=== PATIENT | female | born 1990 | race Caucasian/White ===

== ENCOUNTER 2017-08-06 08:04 | Inpatient (IN) ==
--- OUTSIDE RECORDS SUMMARY | 2017-08-13 06:44 | External Medical Summary | Summary of Care ---
:1990 Author Name Chad Her M.D. Address [address] [place], [place] [id number] Care Team Providers Name Role Phone No Assigned PCP-Pt Confirmed Primary Care Provider Unavailable Unavailable Unavailable Unavailable Functional Status Functional Status Health Issues Name Dates Details Functional status health issues are not documented Status: Cognitive Status Health Issues Name Dates Details Cognitive status health issues are not documented Status: Problems Name Dates Details Positive urine test (V72.42, Z32.01) Status: Active Otalgia (388.70, H92.09) Status: Active Face pain (784.0, R51) Status: Active TMJ (temporomandibular joint syndrome) (524.60, M26.60) Status: Active Tooth pain (525.9, K08.8) Status: Active Pain, ankle, right (719.47, M25.571) Status: Active Breast tenderness in female (611.71, N64.4) Status: Active Medications Name Dates Details No Reported Medications Refills: 0 Active Allergies and Adverse Reactions Name Dates Details Amoxicillin TABS Reaction: Hives (Severe) Status: Active Clindamycin Status: Active Penicillins Reaction: Hives (Severe) Status: Active Sulfa Drugs Status: Active Past Medical History Name Dates Details History of migraine (V12.49, Z86.69) Status: Resolved Personal history of rheumatoid arthritis (V13.4, Z87.39) Status: Resolved Procedures Procedure Dates Details History of Tonsillectomy Comprehensive Metabolic Panel 1212 Ordered:16-Jul-2015 BETA HCG 3500 Ordered:16-Jul-2015 PROLACTIN 3612 Ordered:16-Jul-2015 THYROID STIM. HORMONE 3602 Ordered:16-Jul-2015 Immunization Name Dates Details Immunizations not documented Family History Unknown Family Member Name Dates Details Family history of Ovarian cancer (183.0, C56.9) Comments: Other Status: Active Family history of alcoholism (V17.0, Z81.1) Comments: Other Status: Active Social History Name Dates Details Smoking StatusSmoker. current status unknown Vital Signs Date Test Result Details 16-Jul-2015 15:38 BP Systolic 130 mm[Hg] Status: BP Diastolic 92 mm[Hg] Status: Temperature 98.8 f Status: Heart Rate 108 /min Status: Respiration Rate 16 /min Status: O2 SAT 98 % Status: Results Date Description Value Details 16-Jul-2015 17:07 CBC w/ Auto Diff 7150 WBC 5.0 K/uL (Better) Range: 4.5-11.0 RBC 4.30 mil/uL (Better) Range: 3.60-5.00 HGB 13.7 g/dL (Better) Range: 12.0-16.0 HCT 39.6 % (Better) Range: 36.0-48.0 MCV 92.0 fL (Better) Range: 80.0-99.0 MCH 31.8 pg (Better) Range: 27.3-32.5 MCHC 34.5 % (Better) Range: 32.0-36.0 RDW 12.3 % (Better) Range: 11.6-14.8 PLATELETS 292 K/uL (Better) Range: 150-400 MPV 7.9 fL (Better) Range: 6.0-11.0 %NEUTRO 51.0 % (Better) Range: 37.0-80.0 %LYMPHS 37.8 % (Better) Range: 13.0-50.0 %MONO 6.7 % (Better) Range: 0.0-12.0 %EOS 1.5 % (Better) Range: 0.0-7.0 %BASO 0.8 % (Better) Range: 0.0-2.5 %SIENNA 2.2 % (Better) Range: 0.0-5.0 NEUTRO 2.5 K/uL (Better) Range: 2.0-6.9 LYMPHS 1.9 K/uL (Better) Range: 0.6-3.4 MONOS 0.3 K/uL (Better) Range: 0.0-0.9 EOS 0.1 K/uL (Better) Range: 0.0-0.7 BASO 0.0 K/uL (Better) Range: 0.0-0.2 Plan of Care Planned Observations Name Dates Details Planned Goals not documented Goal Instructions Instructions not documented Encounters Appointment; Martin Her On 16-Jul-2015 Encounter Diagnosis: Problem not documented 15:20 Appointment; Mo Sheehan On 03-May-2015 Encounter Diagnosis: Problem not documented 16:10 Appointment; Tr Jules On 21-Jun-2014 Encounter Diagnosis: Problem not documented 14:35 Appointment; Martin Her On 21-Sep-2013 Encounter Diagnosis: Problem not documented 15:45
--- OUTSIDE RECORDS SUMMARY | 2017-08-13 06:44 | External Medical Summary | Summary of Care ---
:1990 Author Name Chad Her M.D. Address [address] [place], [place] [id number] Care Team Providers Name Role Phone Chad Her M.D. Unavailable Unavailable No Assigned PCP-Pt Confirmed Primary Care Provider Unavailable Unavailable Unavailable Unavailable Functional Status Functional Status Health Issues Name Dates Details Functional status health issues are not documented Status: Cognitive Status Health Issues Name Dates Details Cognitive status health issues are not documented Status: Problems Name Dates Details Otalgia (388.70, H92.09) Status: Active Face pain (784.0, R51) Status: Active Tooth pain (525.9, K08.8) Status: Active Pain, ankle, right (719.47, M25.571) Status: Active TMJ (temporomandibular joint syndrome) (524.60, M26.60) Status: Active Breast tenderness in female (611.71, N64.4) Status: Active Positive urine test (V72.42, Z32.01) Status: Active Acute sinusitis (461.9, J01.90) Status: Active Medications Name Dates Details Doxycycline Hyclate 100 MG Oral Capsule TAKE 1 CAPSULE EVERY 12 HOURS DAILY. Quantity: 14 Refills: 0 Martin Her M.D. Started 08-Nov-2015 Ended 15-Nov-2015 ActivePredniSONE 10 MG Oral Tablet TAKE 4 TABLETS DAILY FOR 2 DAYS,3 TABLETS DAILY FOR 2 DAYS, 2 TABLETS DAILY FOR 2 DAYS AND 1 TABLET DAILY FOR 2 DAYS, THEN STOP. Quantity: 20 Refills: 0 Martin Her M.D. Started 08-Nov-2015 Active Allergies and Adverse Reactions Name Dates Details Amoxicillin TABS Reaction: Hives (Severe) Status: Active Clindamycin Status: Active Penicillins Reaction: Hives (Severe) Status: Active Sulfa Drugs Status: Active Past Medical History Name Dates Details TMJ (temporomandibular joint syndrome) (524.60, M26.60) Status: Active History of depression (V11.8, Z86.59) Status: Resolved History of migraine (V12.49, Z86.69) Status: Resolved Personal history of rheumatoid arthritis (V13.4, Z87.39) Status: Resolved Procedures Procedure Dates Details History of Tonsillectomy Procedures not documented Immunization Name Dates Details Immunizations not documented Family History Unknown Family Member Name Dates Details Family history of Ovarian cancer (183.0, C56.9) Comments: Other Status: Active Family history of alcoholism (V17.0, Z81.1) Comments: Other Status: Active Social History Name Dates Details Smoking StatusSmoker. current status unknown Vital Signs Date Test Result Details 08-Nov-2015 16:19 BP Systolic 121 mm[Hg] Status: BP Diastolic 82 mm[Hg] Status: Temperature 98.8 f Status: Heart Rate 97 /min Status: O2 SAT 97 % Status: Results Date Description Value Details Results not documented Plan of Care Planned Observations Name Dates Details Planned Goals not documented Goal Instructions Instructions not documented Encounters Appointment; Martin Her On 08-Nov-2015 Encounter Diagnosis: Problem not documented 16:15 Appointment; Martin Her On 16-Jul-2015 Encounter Diagnosis: Problem not documented 15:20 Appointment; Mo Sheehan On 03-May-2015 Encounter Diagnosis: Problem not documented 16:10 Appointment; Tr Jules On 21-Jun-2014 Encounter Diagnosis: Problem not documented 14:35
--- OUTSIDE RECORDS SUMMARY | 2017-08-13 06:44 | External Medical Summary | Continuity of Care Document ---
:1990 Author Organization [facility] Address [address] [place], [place] [id number] Phone Allergies, Adverse Reactions, Alerts Substance Reaction Severity Status amoxicillin Unknown Active PENICILLIN Unknown Active clindamycin Rash Unknown Active Medications Medication Instructions Dosage Effective Dates Status Comments (start - stop) ferrous sulfate 325 take 1 tablet by oral 325 MG - Active mg (65 mg iron) route 2 times every tablet day Aspir-81 81 mg take 1 tablet by oral 81 MG - Active tablet,delayed route every day release ONE DAILY take 1 by Oral route - Active (unknown strength) every day Problems Condition Effective Dates (start - stop) Clinical Status Mastodynia Irregular Menses Supervision of other high risk - pregnancies, first trimester Preg care for patient w recurrent preg - loss, first trimester Encntr screen for infections w sexl - mode of transmiss Encounter for screening for oth - infec/parastc diseases Encounter for screening of - mother 8 weeks gestation of - Recurrent loss Encntr screen for infections w sexl mode of transmiss Encounter for test, result - negative Recurrent loss Supervision of other high risk - pregnancies, first trimester Preg care for patient w recurrent preg - loss, first trimester 10 weeks gestation of - Supervision of other high risk - pregnancies, first trimester Placenta previa specified as w/o - hemorrhage, first trimester 12 weeks gestation of - Supervision of other high risk - pregnancies, first trimester Preg care for patient w recurrent preg - loss, first trimester 12 weeks gestation of - Supervision of other high risk - pregnancies, second trimester Preg care for patient w recur preg - loss, second trimester Placenta previa specified as w/o - hemor, second trimester 20 weeks gestation of - Supervision of other high risk - pregnancies, second trimester Placenta previa specified as w/o - hemor, second trimester 16 weeks gestation of - Supervision of other high risk - pregnancies, third trimester Preg care for patient w recurrent preg - loss, third trimester 31 weeks gestation of - Supervision of other high risk - pregnancies, third trimester Preg care for patient w recurrent preg - loss, third trimester Encounter for suprvsn of normal - , third trimester 29 weeks gestation of - Threatened Encounter for suprvsn of normal - , second trimester 20 weeks gestation of - Depression Active Procedures Procedure Date Unknown Results Test Name Date and Time Measure Units Reference Range Abnormal Flag Comments Unknown Advance Directives Directive Yes / No Effective Date File Name Unknown Encounters Encounter Practice Location Reason(s) Diagnoses Date Provider Care Team Description For Visit Members Yahaira Romero Supervision of Sobbing Referring In Womens other high risk 3-201 Kurt. Provider: Health [place], pregnancies, 7 [address] Medical Blanca L, 1522, trimesterPreg Center [address] [place] [address], care for patient [facility] ARACELY, w recurrent preg Suite Center [id number], loss, third 120, Joe 120, [place] [id number] weeks Nick Rom[place], tel: gestation of ARACELY JESSICA, [address], [id number]. [place]. tel: tel: [phone] Yahaira Romero Oct-2 Blanca In Womens 0-201 Valeria. [facility], [facility], [address] Medical [address]22, [facility] [place], 120, [id number], [place], [place], tel:[phone] , [place]. tel: [phone] Yahaira Romero Supervision of Blanca Referring In Womens other high risk 9-201 Valeria. Provider: Luh LIPSCOMB, pregnancies, 7 [address] third Medical Blanca L, 1522, trimesterPreg Center [address] [place] [address], care for patient Joe Fuentes, w recurrent preg 120, Center [id number], loss, third Romero, [facility] 120, [place] trimesterEncounte Nick JESSICA, tel: r for suprvsn of [phone] [place], normal , , [place]. [id number]. third [id number] tel: tel:+[phone] weeks gestation [phone] of Associates Nick Encounter for Mar- Blanca Referring In Womens suprvsn of normal 3-201 Valeria. Provider: Luh LIPSCOMB, , second [address] [id number] weeks Medical Blanca L, 1522, gestation of Center [address] [place] [address], Joe Fuentes, 120, Center [id number], Nick, [facility] 120, [place] Nick JESSICA, tel:[phone] [place], , [place]. [id number]. tel: tel: [phone] Yahaira Romero Supervision of Blanca Referring In Womens Ultrasound other high risk 3-201 Valeria. Provider: Luh LIPSCOMB, pregnancies, 7 [address] second Medical Blanca L, 1522, trimesterPreg Center [address] [place] [address], care for patient Joe Fuentes, w recur preg 120, Center [id number], loss, second Nick, [facility] 120, [place] trimesterPlacenta Nick JESSICA, tel: previa specified [phone] [place], as w/o hemor, , [place]. [id number]. second tel: tel:[phone] aounprtsq41 weeks [phone] gestation of Associates Nick Supervision of Blanca Referring In Womens other high risk 6-201 Valeria. Provider: Health [place], pregnancies, 7 [address] second Medical Blanca L, 1522, trimesterPlacenta Center [address] [place] [address], previa specified Joe Fuentes, as w/o hemor, 120, Center [id number], second Nick, Joe 120, [place] [id number] weeks Nick JESSICA, tel:+[phone] gestation of [phone] [place], , [place]. [id number]. tel: tel:[phone] Yahaira Romero Supervision of Jerzy-2 Blanca Referring In Womens other high risk 8-201 Valeria. Provider: Health [place], pregnancies, 7 [address] first Medical Blanca L, 1522, trimesterPlacenta Center [address] [place] [address], previa specified Joe Fuentes, as w/o 120, Center [id number], hemorrhage, first Nick, Joe 120, [place] [id number] weeks Nick JESSICA, tel:+[phone] gestation of [id number] [place], , [place]. [id number]. tel: tel:[phone] Yahaira Romero Supervision of Jerzy-2 Blanca Referring In Womens Ultrasound other high risk 8-201 Valeria. Provider: Health [place], pregnancies, 7 700 [address] first Medical Blanca L, 1522, trimesterPreg Center [address] [place] [address], care for patient Joe Fuentes, w recurrent preg 120, Center [id number], loss, first Nick [place] 120, [place] [id number] weeks Nick JESSICA, tel:+[phone] gestation of [id number] [place], , [place]. [id number]. tel: tel:[phone] Yahaira Romero Supervision of Jerzy-1 Blanca Referring In Womens other high risk 4-201 Valeria. Provider: Health [place], pregnancies, 7 700 [address] first Medical Blanca L, 1522, trimesterPreg Center [address] [place] [address], care for patient Joe Fuentes, w recurrent preg 120, Center [id number], loss, first Nick, Joe 120, [place] weeks Nick JESSICA, tel:+[phone] gestation of [id number] [place], , [place]. [id number]. tel: tel: [phone] Yahaira Romero Supervision of December-3 Blanca Referring In Womens other high risk 0-201 Valeria. Provider: Luh LIPSCOMB, pregnancies, 7 700 [address] first Medical Blanca L, 1522, trimesterPreg Center [address] [place] [address], care for patient , [facility] [place], w recurrent preg 120, [place] [id number], loss, first Romero, [facility] 120, [place] trimesterEncntr Nick JESSICA, tel:2 screen [address] [phone] [facility] infections w sexl , [place]. [id number]. mode of tel: tel: transmissEncounte [phone] r for screening for oth infec/parastc diseasesEncounter for screening of mother8 weeks gestation of Associates Nick December-1 Blanca In Womens 8-201 Valeria. Luh LIPSCOMB, 7 [address], [place] Dr Jacob, [facility], 120, , [place], [facility], tel: [phone] , [place]. tel: [phone] Yahaira Romero Threatened May-0 Blanca Referring In Womens 8-201 Valeria. Provider: Luh LIPSCOMB, [address] Medical Blanca L, 1522, Center [facility] Dr Jacob, [facility] [place], 120, [place] [id number], Nick [place] [address], Nick JESSICA, tel: [phone] [facility] , [place]. [id number]. tel: tel:[phone] Yahaira Romero MastodyniaIrregul Dec- Blanca Referring In Womens ar Menses 6-201 Valeria. Provider: Luh LIPSCOMB, 5 [address] Medical Blanca L, 1522, Center [facility] Dr Jacob, [facility], 120, [place] [id number], [facility], Nick JESSICA, tel:[phone] [facility] , [place]. [id number]. tel: tel:[phone] Yahaira Romero Recurrent Oct-1 Blanca In Womens loss 0-201 Valeria. Health RUEL, 5 700 [address], Center Dr Jacob, [facility] [place], 120, [id number], [place] ARACELY Rom[place], tel: [phone] , [place]. tel: [phone] Yahaira Romero Recurrent Oct-0 Blanca Referring In Womens 5-201 Valeria. Provider: jackson IsaacEncntr screen 5 [address] for infections w Medical Blanca L, 1522, sexl mode of Center [address] [place], transmissEncounte , [facility] [place], r for 120, [place] [id number], test, result Nick [place] [address], [place] negative Nick JESSICA, tel: [phone] [place], , . [id number]. tel: tel: [phone] Family History Family Member Diagnosis Age At Onset No family history of Lung Disease No family history of Breast Cancer No family history of Cardiovascular Disease Maternal Grandmother Ovarian Cancer No family history of Venous Thrombosis Mother Uterine Cancer No family history of Pulmonary Embolism Mother Ovarian Cancer No family history of Colon Cancer No family history of Hypertension No family history of Osteoporosis No family history of Kidney Disease Maternal Grandmother Diabetes No family history of Epilepsy No family history of Thyroid Disorder No family history of Stroke Immunizations Vaccine Date Status Comments Unknown Payers Payer name Insurance type Covered alliance party ID Authorization(s) Unknown Social History Type Description Quantity Date Captured Unknown Vital Signs Date / Height Weight BMI Pulse Blood Temperature Respiratory Body Head BMI Time: Rate Pressure Rate Surface Circumference percentile Area Unknown Chief Complaint And Reason For Visit Unknown Chief Complaint And Reason For Visit Reason For Referral Reason For Referral Unknown Plan Of Care Date Type Action Status Goal Tobacco cessation counseling completed Goal Tobacco cessation counseling completed Goal Tobacco cessation counseling completed Appointment Jossy Bey BOOKED Future Order: Radiology Order Nuchal Translucency ([id number]) Ordered Future Order: Radiology Order Complete OB Ultrasound > 14 Ordered Weeks ([id number]) Date Type Problem Goal Intervention Status Start Date Unknown. History Of Present Illness Encounter Date Complaint History Of Present Illness This patient has no known history of present illness Functional Status Encounter Date Functional Assessment Cognitive Assessment Unknown Medications Administered Medication Instructions Dosage Effective Dates (start - stop) Status Comments Drug Treatment Unknown Instructions Date Instruction Additional Information new ob handbook [facility] docs exercise HIV and other routine tests risk factors identified by history anticipated course of care nutrition and weight gain counseling, special diet toxoplasmosis precautions (cats / raw meat) sexual activity indications for ultrasound influenza vaccine environmental / work hazards travel tobacco (ask, advise, assess, assist and arrange) use of any medications (including supplements, vitamins, herbs, OTC drugs) smoking counseling domestic violence seat belt use childbirth classes / hospital facilities hospital registration genetic testing
--- OUTSIDE RECORDS SUMMARY | 2017-08-13 06:45 | External Medical Summary | Summary of Care ---
:1990 Author Name Chad Her M.D. Address [address] [place], [place] [id number] Care Team Providers Name Role Phone No [...] Positive urine test (V72.42, Z32.01) Status: Active Medications Name Dates Details No [...] K/uL (Better) Range: 4.5-11.0 RBC 4.30 mil/uL Range: 3.60-5.00 (Better) HGB 13.7 g/dL Range: 12.0-16.0 (Better) HCT 39.6 % (Better) Range: 36.0-48.0 MCV [...] 0.0-0.7 BASO 0.0 K/uL (Better) Range: 0.0-0.2 17:28 Comprehensive Metabolic Panel 1212 SODIUM 140 mmol/L Range: 133-144 (Better) POTASSIUM 4.1 mmol/L Range: 3.5-5.1 (Better) CHLORIDE 106 mmol/L Range: 98-110 (Better) CARBON DIOXIDE 26.5 mmol/L Range: 23.0-33.0 (Better) ANION GAP 8 mmol/L (Better) Range: 6-16 BUN 9 mg/dL (Better) Range: 7-18 CREATININE, SERUM 0.85 mg/dL Range: 0.55-1.02 (Better) Comments: Please note new reference ranges effective 2014.- ---- BUN:CREATININE RATIO 11 (Better) EST GFR, >60 ml/min Range: >60 (Better) EST GFR, NON-AFR BRAZILIAN >60 ml/min Range: >60 (Better) Comments: EST GFR is reported in ml/min per 1.73 m2 of body surface area. For -Peruvian, please multiple result by 1.2.----- GLUCOSE 91 mg/dL (Better) Range: 70-100 ALK PHOSPHATASE 64 U/L (Better) Range: 46-116 TOTAL BILIRUBIN 0.30 mg/dL Range: 0.20-1.00 (Better) AST 16 U/L (Better) Range: 8-35 ALT 27 U/L (Better) Range: 14-59 Comments: Please note new reference ranges. Effective 10/12/2014.----- ALBUMIN 4.1 g/dL (Better) Range: 3.4-5.0 TOTAL PROTEIN 7.5 g/dL (Better) Range: 6.4-8.2 A/G RATIO 1.2 units Range: 1.0-1.8 (Better) CALCIUM 9.0 mg/dL Range: 8.5-10.1 (Better) 17:36 BETA HCG 3500 BETA HCG <2 mIU/mL Range: 0-5 (Better) Comments: Gestational age: 0.02-1 Weeks=5-50 mIU/mL1-2 Weeks=50 -500 mIU/mL2-3 Wbewd=951-2049 mIU/mL3-4 Jikzd=084-97,000 mIU/mL4-5 Weeks=1,000- 50,000 mIU/mL5-6 Weeks=10,000-100,000 mIU/mL6-8 Weeks=15,000-200,000 mIU/mL2-3 months=10,000-100,000 mIU/mL----- 17:36 PROLACTIN 3612 PROLACTIN 4.4 ng/mL Range: 2.8-29.2 (Better) Comments: Women: 9.7-208.5Post-menopausal Women: 1.8- 20.3----- 17:36 THYROID STIM. HORMONE 3602 THYROID STIM. HORMONE 2.436 uIU/mL Range: 0.550-4.780 (Better) Comments: No established reference ranges for infants and children <2 years of age----- Plan of Care Planned Observations Name Dates [...]
--- OUTSIDE RECORDS SUMMARY | 2017-08-13 06:45 | External Medical Summary | Continuity of Care Document ---
:1990 Author Organization [facility] [employer] [facility] Address [address] [place], [place] [address] Phone Allergies, Adverse Reactions, Alerts Substance Reaction Severity Status amoxicillin Unknown Active PENICILLIN Unknown Active clindamycin Rash Unknown Active Medications Medication Instructions Dosage Effective Dates Status Comments (start - stop) Aspir-81 81 mg take 1 tablet by oral 81 MG - Active tablet,delayed route every day release ONE DAILY take 1 by Oral route - Active (unknown strength) every day Problems Condition Effective Dates (start - stop) Clinical Status Encounter for suprvsn of normal - , second trimester 20 weeks gestation of - Mastodynia Irregular Menses Preg care for patient w recurrent preg - loss, first trimester Supervision of other high risk - pregnancies, first trimester Encntr screen for infections w sexl - mode of transmiss Encounter for screening for oth - infec/parastc diseases Encounter for screening of - mother 8 weeks gestation of - Recurrent loss Encounter for test, result - negative Encntr screen for infections w sexl mode of transmiss Recurrent loss Supervision of other high risk - pregnancies, first trimester Preg care for patient w recurrent preg - loss, first trimester 10 weeks gestation of - Threatened Supervision of other high risk - pregnancies, first trimester Preg care for patient w recurrent preg - loss, first trimester 12 weeks gestation of - Supervision of other high risk - pregnancies, first trimester Placenta previa specified as w/o - hemorrhage, first trimester 12 weeks gestation of - Supervision of other high risk - pregnancies, second trimester 16 weeks gestation of - Placenta previa specified as w/o - hemor, second trimester Preg care for patient w recur preg - loss, second trimester Supervision of other high risk - pregnancies, second trimester Placenta previa specified as w/o - hemor, second trimester 20 weeks gestation of - Depression Active Procedures Procedure Date OB Visit No Charge Results Test Name Date and Time Measure Units Reference Range Abnormal Flag Comments Unknown Advance Directives Directive Yes / No Effective Date File Name Unknown Encounters Encounter Practice Location Reason(s) Diagnoses Date Provider Care Team Description For Visit Members Associates [facility] Encounter for Blanca Referring In Womens suprvsn of normal 3-201 Valeria. Provider: Luh LIPSCOMB, , second 7 700 Valeria [address] [email or web address] weeks Medical Blanca L, 1522, gestation of Center [address], , Joe [facility], 120, [place] [id number], Nick, [facility] 120, [place] Nick JESSICA, tel:[phone] [place], , [place]. [id number]. tel: tel:+ [phone] Yahaira [place] Preg care for Blanca Referring In Womens Ultrasound patient w recur 3-201 Valeria. Provider: Luh LIPSCOMB, preg loss, second 7 700 Valeria PO Box trimesterSupervis Medical Blanca L, 1522, ion of other high Center [address], risk pregnancies, Joe Fuentes [facility], second 120, Center [id number], trimesterPlacenta Nick, [facility] 120, [place] previa specified Nick JESSICA, tel: as w/o hemor, [id number] [place], [id number] second , [place]. [id number]. [id number] weeks tel: tel: gestation of [phone] Associates Nick Supervision of Blanca Referring In Womens other high risk 6-201 Valeria. Provider: Health PA, pregnancies, 7 700 Valeria PO [address] second Medical Blanca L, 1522, [id number] weeks Center [address] [place] [address], gestation of Joe Fuentes, pregnancyPlacenta 120, Center [id number], previa specified Nick Joe 120, [place] as w/o hemor, Nick JESSICA, tel:[phone] second trimester [phone] [place], , [place]. [id number]. tel: tel:[phone] Yahaira [place] Supervision of Jerzy-2 Blanca Referring In Womens other high risk 8-201 Valeria. Provider: Health PA, pregnancies, 7 700 Valeria PO Box first Medical Blanca L, 1522, trimesterPlacenta Center [address] [place] [address], previa specified Joe Fuentes, as w/o 120, Center [id number], hemorrhage, first Nick Joe 120, [place] [email or web address] weeks Nick JESSICA, tel:+[phone] gestation of [phone] [place], , [place]. [id number]. tel: tel:[phone] Yahaira [place]ero Supervision of Jerzy-2 Blanca Referring In Womens Ultrasound other high risk 8-201 Valeria. Provider: Luh LIPSCOMB, pregnancies, 7 700 Valeria PO Box first Medical Blanca L, 1522, trimesterPreg Center [address] [place] [address], care for patient Joe Fuentes, w recurrent preg 120, Center [id number], loss, first Nick Joe 120, [place] [id number] weeks Nick JESSICA, tel:+[phone] gestation of [id number] [place], , [place]. [id number]. tel: tel:[phone] Yahaira [place]ero Supervision of Jerzy-1 Blanca Referring In Womens other high risk 4-201 Valeria. Provider: Health RULE, pregnancies, 7 700 Valeria PO Box first Medical Blanca L, 1522, trimesterPreg Center [address] [place] [address], care for patient Joe Fuentes, w recurrent preg 120, Center [id number], loss, first [place] Joe 120, [place] weeks Nick JESSICA, tel:+[phone] gestation of [id number] [place], , [place]. [id number]. tel: tel: [phone] Yahaira Romero Preg care for December-3 Blanca Referring In Womens patient w 0-201 Valeria. Provider: Luh LIPSCOMB, recurrent preg 7 700 Valeria PO Box loss, first Medical Blanca L, 1522, trimesterSupervis Center [facility] [place], ion of other high , [facility] [place] JESSICA, risk pregnancies, 120, Center [id number], [facility] Nick [facility] 120, [place] trimesterEncntr Nick JESSICA, tel:2 screen for [id number] [place], infections w sexl , [place]. [id number]. mode of tel: tel:[phone] transmissEncounte [phone] r for screening for oth infec/parastc diseasesEncounter for screening of mother8 weeks gestation of Associates Nick December-1 Blanca In Womens 8-201 Valeria. Luh LIPSCOMB, 7 700 PO [address] Medical [address], [place] Dr Jacob, [facility], 120, [id number], [place], [place], tel: [phone] , [place]. tel: [phone] Yahaira [place] Threatened May-0 Blanca Referring In Womens 8-201 Valeria. Provider: Luh LIPSCOMB, 7 700 Valeria PO Box Medical Blanca L, 1522, Center [facility] Dr Jacob, Joe Schultz [place], 120, [place] [id number], Nick [facility] 120, Nick JESSICA, tel: [phone] [place], , [place]. [id number]. tel: tel:[phone] Yahaira [place] MastodyniaIrregul Dec-1 Blanca Referring In Womens ar Menses 6-201 Valeria. Provider: Luh LIPSCOMB, 5 700 Valeria PO Box Medical Blanca L, 1522, Center [address], Joe [place] JESSICA, 120, Center [id number], Nick [facility] 120, Nick JESSICA, tel: [phone] [place], , [place]. [id number]. tel: tel: [phone] Associates Nick Recurrent Oct-1 Blanca In Womens loss 0-201 Valeria. Health RUEL, 5 700 PO Box Medical 1522, Center Dr Jacob, [facility], 120, [id number], [place], [place], tel: [phone] , . tel: [phone] Yahaira [place] Recurrent Oct-0 Blanca Referring In Womens 5-201 Valeria. Provider: Health PA, lossEncounter for 5 700 Valeria PO Box test, Medical Blanca L, 1522, result Center [facility] [place], negativeEncntr , [facility], screen for 120, [place] [id number], infections w sexl Nick, [facility] 120, [place] mode of transmiss Nick JESSICA, tel: [phone] [place], , . [id number]. tel: tel: [phone] Family History Family Member Diagnosis Age At [...] Social History Type Description Quantity Date Captured Alcohol Use Details No Caffeine Use Details Unknown Tobacco Use Status Smoking Status Former smoker Vital Signs Date / Height Weight BMI [...] BOOKED Future Order: Radiology Order Nuchal Translucency ([id number]) Ordered Future Order: Radiology Order Complete OB Ultrasound > 14 Ordered Weeks (09302) Date Type Problem Goal Intervention Status Start [...]
--- OUTSIDE RECORDS SUMMARY | 2017-08-13 06:45 | External Medical Summary | Continuity of Care Document ---
:1990 Author Organization [facility] [employer] [facility] Address [address] [place], [place] [address] Phone Allergies, Adverse Reactions, Alerts Substance Reaction [...] suprvsn of normal - , third trimester 36 weeks gestation of - Mastodynia Irregular Menses Supervision of other high [...] trimester 29 weeks gestation of - Threatened Preg care for patient w recurrent preg - loss, third trimester Encounter for suprvsn of normal - , third trimester 34 weeks gestation of - Preg care for patient w recurrent preg - loss, third trimester Encounter for suprvsn of normal - , third trimester 38 weeks gestation of - Encounter for suprvsn of normal - , second trimester 20 weeks gestation of - Encounter for suprvsn of normal - , third trimester 39 weeks gestation of - Depression Active Procedures Procedure Date OB Visit No Charge Cult, pathgnc orgnsm, screen Results Test Name Date and Time Measure Units Reference Range Abnormal Flag Comments Panel Description: CULTURE, GROUP B STREP WITH SUSCEPTIBILITY CULTURE, GROUP B SEE NOTE CULTURE, GROUP B STREP WITH STREP WITH 16:51:00 SUSCEPTIBILITY MICRO NUMBER: SUSCEPTIBILITY [id number] TEST STATUS: FINAL SPECIMEN SOURCE: VAGINAL/ANORECTAL SPECIMEN QUALITY: ADEQUATE RESULT: No group B Streptococcus isolatedREPORT COMMENT:FASTING:UNKNOWNTest performed at [facility] [id number] [place] [address]Xylturbn: JOSY LEONARD DO,MPH Advance Directives Directive Yes / No Effective Date File Name Unknown Encounters Encounter Practice Location Reason(s) Diagnoses Date Provider Care Team Description For Visit Members Yahaira Rom[place] Encounter for Dec-2 Blanca Referring In Womens suprvsn of normal 8-201 Valeria. Provider: Health RUEL, , third 7 700 Valeria [address] [id number] weeks Medical Blanca L, 1522, gestation of Center [address] [place], [place] [address]ta, Dr [facility] [place], 120, [place] [id number], Nick [facility] 120, [place] Nick JESSICA, tel:[phone] [place], , [place]. [id number]. tel: tel:[phone] Yahaira [place] Preg care for Dec-2 Blanca Referring In Womens patient w 1-201 Valeria. Provider: Luh LIPSCOMB, recurrent preg 7 700 Valeria PO Box loss, third Medical Blanca L, 1522, trimesterEncounte Center [address] [place] [address], for suprvsn of DrJoe, normal , 120, [place] [id number], third [id number] [place] [facility] 120, [place] weeks gestation Nick JESSICA, tel:[phone] of [phone] [place], , [place]. [id number]. tel: tel:[phone] Yahaira [place] Encounter for Dec-1 Blanca Referring In Womens suprvsn of normal 3-201 Valeria. Provider: Luh LIPSCOMB, , third 7 700 Valeria [address] [email or web address] weeks Medical Blanca L, 1522, gestation of Center [facility] Jacob, Joe Fuentes [place], 120, [place] [id number], Nick, [facility] 120, [place] Nick JESSICA, tel:[phone] [place], , [place]. [id number]. tel: tel:[phone] Yahaira [place] Preg care for Nov-2 Blanca Referring In Womens patient w 7-201 Valeria. Provider: Health PA, recurrent preg 7 700 Valeria PO Box loss, third Medical Blanca L, 1522, trimesterEncounte Center [address] [place], r for suprvsn of Joe Fuentes, normal , 120, Center [id number], third [id number] [place], Joe 120, [place] weeks gestation Nick JESSICA, tel:+ of [phone] [place], , [place]. [id number]. tel: tel:+ [phone] Yahaira [place] Supervision of Nov-0 [place] Referring In Womens other high risk 3-201 Kurt. Provider: Health RUEL, pregnancies, 7 700 Valeria PO Box third Medical Blanca L, 1522, trimesterPreg Center [address] [place] [address], care for patient Sherly Medical ARACELY, w recurrent preg Suite Center [id number], loss, third 120, Joe 120, [place] [id number] weeks Nick [place], tel:+ [place], [address], [id number]. [place]. tel: tel: [phone] Yahaira [place] Oct-2 Blanca In Womens 0-201 Valeria. Health RUEL, 7 700 PO Box Medical 1522, Center Jacob, [facility], 120, [id number], [place], [place], tel:[phone] , [place]. tel: [phone] Yahaira [place] Supervision of May-1 Blanca Referring In Womens other high risk 9-201 Valeria. Provider: Health RUEL, pregnancies, 7 700 Valeria PO Box third Medical Blanca L, 1522, trimesterPreg Center 700 [place], care for patient Joe Fuentes, w recurrent preg 120, Center [id number], loss, third [place], Joe 120, [place] trimesterEncounte Nick JESSICA, tel:[phone] r for suprvsn of [id number] [place], normal , , [place]. [id number]. third [id number] tel: tel:+316 weeks gestation [phone] of Associates Nick Encounter for Aug-2 Blanca Referring In Womens suprvsn of normal 3-201 Valeria. Provider: Health PA, , second 7 700 Valeria PO Box [id number] weeks Medical Blanca L, 1522, gestation of Center [address] [place] [address], Joe Fuentes, 120, Center [id number], Nick Joe 120, [place] Nick JESSICA, tel:+ [phone] [place], , [place]. [id number]. tel: tel:[phone] Yahaira [place] Supervision of Blanca Referring In Womens Ultrasound other high risk 3-201 Valeria. Provider: Health PA, pregnancies, 7 700 Valeria PO Box second Medical Blanca L, 1522, trimesterPreg Center [address] [place] [address], care for patient Joe Fuentes, w recur preg 120, Center [id number], loss, second Nick Joe 120, [place] trimesterPlacenta Nick JESSICA, tel:+ previa specified [phone] [place], as w/o hemor, , [place]. [id number]. second tel: tel:+[phone] [id number] weeks [phone] gestation of Associates Nick Supervision of Blanca Referring In Womens other high risk 6-201 Valeria. Provider: Health RUEL, pregnancies, 7 700 Valeria PO Box second Medical Blanca L, 1522, trimesterPlacenta Center [address] [place] [address], previa specified Joe Fuentes, as w/o hemor, 120, Center [id number], second Nick Joe 120, [place] [id number] weeks Nick JESSICA, tel:+ gestation of [phone] [place], , [place]. [id number]. tel: tel:[phone] Yahaira [place] Supervision of Blanca Referring In Womens other high risk 8-201 Valeria. Provider: Luh LIPSCOMB, pregnancies, 7 700 Valeria PO Box first Medical Blanca L, 1522, trimesterPlacenta Center [address] [place] [address], previa specified Joe Fuentes, as w/o 120, Center [id number], hemorrhage, first Nick Joe 120, [place] [id number] weeks Nick JESSICA, tel:+3162 gestation of [id number] [place], , [place]. [id number]. tel: tel:[phone] Yahaira [place] Supervision of Jerzy-2 Blanca Referring In Womens Ultrasound other high risk 8-201 Valeria. Provider: Health PA, pregnancies, 7 700 Valeria PO Box first Medical Blanca L, 1522, trimesterPreg Center [address] [place] [address], care for patient Joe Fuentes, w recurrent preg 120, Center [id number], loss, first Nick, Joe 120, [place] weeks Nick JESSICA, tel:+3162 gestation of [id number] [place], , [place]. [id number]. tel: tel:[phone] Yahaira [place] Supervision of Jerzy-1 Blanca Referring In Womens other high risk 4-201 Valeria. Provider: Health PA, pregnancies, 7 700 Valeria PO Box first Medical Blanca L, 1522, trimesterPreg Center [address] [place] [address], care for patient Joe Fuentes, w recurrent preg 120, Center [id number], loss, first [place], Joe 120, [place] [id number] weeks Nick JESSICA, tel:+3162 gestation of [id number] [place], , [place]. [id number]. tel: tel:[phone] Yahaira [place] Supervision of December-3 Blanca Referring In Womens other high risk 0-201 Valeria. Provider: Health PA, pregnancies, 7 700 Valeria PO Box first Medical Blanca L, 1522, trimesterPreg Center [address] [place] [address], care for patient Joe Fuentes, w recurrent preg 120, Center [id number], first Nick paz, Joe 120, [place] trimesterEncntr Nick JESSICA, tel:+[phone] screen for [id number] [place], infections w sexl , [place]. [id number]. mode of tel: tel:+-[phone] transmissEncounte [phone] r for screening for oth infec/parastc diseasesEncounter for screening of mother8 weeks gestation of Yahaira [place] May-1 Blanca In Womens 8-201 Valeria. Health RUEL, 7 700 PO Box Medical [address], [place] [address] Jacob, [facility] [place], 120, [id number], [place], [place], tel:[phone] , [place]. tel: [phone] Associates Nick Threatened May-0 Blanca Referring In Womens 8-201 Valeria. Provider: Luh LIPSCOMB, 7 700 Valeria PO Box Medical Blanca L, 1522, Center [facility] Dr Jacob, [facility], 120, [place] [id number], [facility] 120, [place], Nick, tel:[phone] [place], , [place]. [id number]. tel: tel:+ [phone] Associates Nick MastodyniaIrregul Dec-1 Blanca Referring In Womens ar Menses 6-201 Valeria. Provider: Luh LIPSCOMB, 5 700 Valeria PO Box Medical Blanca L, 1522, Center [facility] Dr Jacob, [facility], 120, [place] [id number], [facility] 120, Nick JESSICA, tel:[phone] [place], , [place]. [id number]. tel: tel: [phone] Associates Nick Recurrent Oct-1 Blanca In Womens loss 0-201 Valeria. Luh LIPSCOMB, 5 700 PO Box Medical 15[address], [place] Dr Jacob, [facility], 120, [id number], Nick, [place], tel: [phone] , [place]. tel: [phone] Yahaira [place] Recurrent Oct-0 Blanca Referring In Womens 5-201 Valeria. Provider: Luh LIPSCOMB, lossEncntr screen 5 700 Valeria PO Box for infections w Medical Blanca L, 1522, sexl mode of Center [facility] Jacob, transmissEnclakshmi Fuentes, [facility] [place], r for 120, [place] [id number], test, result [facility] 120, [place] negative Nick JESSICA, tel:[phone] [place], , [place]. [id number]. tel: tel: [phone] Family History Family Member Diagnosis Age At [...] of Stroke Immunizations Vaccine Date Status Comments Tdap completed Source: New Immunization Record Payers Payer name Insurance type Covered republican ID Authorization(s) Unknown Social History Type Description [...] BOOKED Future Order: Radiology Order Nuchal Translucency (03807) Ordered Future Order: Radiology Order Complete OB Ultrasound > 14 Ordered Weeks (67605) Date Type Problem Goal Intervention Status Start [...]
--- OUTSIDE RECORDS SUMMARY | 2017-08-13 06:45 | External Medical Summary | Summary of Care ---
:1990 Author Name Sara Gibson M.D. Address Unavailable Unavailable , Care Team Providers Name Role Phone Sara Gibson M.D. 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 Start 15-Dec-2016 Active Allergies and Adverse Reactions Name Dates Details Amoxicillin TABS (Allergy) Reaction: Hives (Severe) Status: Active Clindamycin (Allergy) Status: Active Penicillins (Allergy) Reaction: Hives (Severe) Status: Active Sulfa Drugs (Allergy) Status: Active Past Medical History Name Dates Details TMJ (temporomandibular joint syndrome) (524.60, M26.609) Status: Active History of depression (V11.8, Z86.59) [...] alcoholism (V17.0, Z81.1) Comments: Other Status: Active Mother Name Dates Details Family history of blood clots (V18.3, Z82.49) Status: Active Father Name Dates Details No pertinent family history Status: Active Social History Name Dates Details - Status: Smoking Status Name Dates Details Smoker. current status unknown Vital Signs Date Test Result Details No Known Vitals to report Results Date Description Value Details Results not documented Plan of Care Name Dates Details Planned Observations Planned Goals not documented Interventions Provided Labs/Procedures/ImagingBETA HCG 3500; Done: [id number] 09:45AMPROGESTERONE 3610; Done: 03Dec2016 09:45AM Instructions Name Dates Details Instructions not documented Encounters Appointment; Renaldo Gann M.D. On 08-Jul-2016 Encounter Diagnosis: Problem not documented 13:15 Appointment; Fausto Ortiz P.T. On 08-Jul-2016 Encounter Diagnosis: Problem not documented 11:00 Appointment; Martin Her M.D. On 08-Nov-2015 Encounter Diagnosis: Problem not documented 16:15 Appointment; Martin Her M.D. On 16-Jul-2015 Encounter Diagnosis: Problem not documented 15:20 Appointment; Mo Sheehan M.D. On 03-May-2015 Encounter Diagnosis: Problem not documented 16:10
--- OUTSIDE RECORDS SUMMARY | 2017-08-13 06:45 | External Medical Summary | Summary of Care ---
:1990 Author Name Anjelica Gann M.D. Address Unavailable Unavailable , Care Team Providers Name Role Phone Anjelica Gann M.D. Unavailable Unavailable No Assigned PCP-Pt Confirmed Unavailable Unavailable Unavailable Unavailable Unavailable Functional Status Functional Status Health Issues Name Dates Details Functional status health issues are not documented Status: Cognitive Status Health Issues Name Dates Details Cognitive status health issues are not documented Status: Problems Name Dates Details Otalgia (388.70, H92.09) Status: Active Face pain (784.0, R51) Status: Active Tooth pain (525.9, K08.89) Status: Active Pain, ankle, right (719.47, M25.571) Status: Active TMJ (temporomandibular joint syndrome) (524.60, M26.609) Status: Active Breast tenderness in female (611.71, N64.4) Status: Active Positive urine test (V72.42, Z32.01) Status: Active Acute sinusitis (461.9, J01.90) Status: Active 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, 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 Pre-employment examination (V70.5, Z02.1) Status: Active Medications Name Dates Details No [...] unknown Vital Signs Date Test Result Details 08-Jul-2016 13:01 BP Systolic 102 mm[Hg] Status: Comments: Location: ; Position: BP Diastolic 62 mm[Hg] Status: Comments: Location: ; Position: Heart Rate 100 /min Status: Comments: Location: ; Height 69 in Status: Weight 155 lb Status: Body Mass Index Calculated 22.89 kg/m2 Status: Body Surface Area Calculated 1.85 m2 Status: Results Date Description Value Details Results not documented Plan of Care Name Dates Details Planned Observations Planned Goals not documented Instructions Name Dates Details Instructions not documented Encounters Appointment; Fausto Ortiz P.T. On 08-Jul-2016 Encounter Diagnosis: Problem not documented 11:00 Appointment; Martin Her M.D. On 08-Nov-2015 Encounter Diagnosis: Problem not documented 16:15 Appointment; Martin Her M.D. On 16-Jul-2015 Encounter Diagnosis: Problem not documented 15:20 Appointment; Mo Sheehan M.D. On 03-May-2015 Encounter Diagnosis: Problem not documented 16:10
--- OUTSIDE RECORDS SUMMARY | 2017-08-13 06:45 | External Medical Summary | Summary of Care ---
:1990 Author Name Chad Her M.D. Address [address] [place], [place] [address] Care Team Providers Name Role Phone No [...] ml/min Range: >60 (Better) EST GFR, NON-AFR POLISH >60 ml/min Range: >60 (Better) Comments: EST GFR is reported in ml/min per 1.73 m2 of body surface area. For -[place], please multiple result by 1.2.----- GLUCOSE 91 [...] age: 0.02-1 Weeks=5-50 mIU/mL1-2 Weeks=50 -500 mIU/mL2-3 Jkyrz=276-6887 mIU/mL3-4 Wdxud=235-19,000 mIU/mL4-5 Weeks=1,000- 50,000 mIU/mL5-6 Weeks=10,000-100,000 mIU/mL6-8 Weeks=15,000-200,000 [...]
--- OUTSIDE RECORDS SUMMARY | 2017-08-13 06:45 | External Medical Summary | Continuity of Care Document ---
:1990 Author Organization [facility] Address [address] [place], [place] [id number] Phone Allergies, Adverse Reactions, Alerts Substance Reaction [...] second trimester 16 weeks gestation of - Threatened Depression Active Procedures Procedure Date Unknown Results Test Name Date and Time Measure Units Reference Range Abnormal Flag Comments Unknown Advance Directives Directive Yes / No Effective Date File Name Unknown Encounters Encounter Practice Location Reason(s) Diagnoses Date Provider Care Team Description For Visit Members Yahaira Romero Supervision of Blanca Referring In Womens other high risk 6-201 Valeria. Provider: Luh LIPSCOMB, pregnancies, 7 700 Valeria PO Box second Medical Blanca L, 1522, trimesterPlacenta Center [address], previa specified Joe Fuentes, as w/o hemor, 120, Center [id number], second Nick, [facility] 120, [place] [email or web address] weeks Nick JESSICA, tel:+[phone] gestation of [id number] [place], , [place]. [id number]. tel: tel:[phone] Yahaira Romero Jan- Blanca In Womens 0-201 Valeria. Luh LIPSCOMB, 7 700 PO Box Medical 1522, [place] Jacob, Joe Fuentes, 120, [id number], [place], [place], tel:[phone] , [place]. tel: [phone] Yahaira [place] Supervision of Blanca Referring In Womens other high risk 8-201 Valeria. Provider: Luh LIPSCOMB, pregnancies, 7 700 Valeria PO Box first Medical Blanca L, 1522, trimesterPlacenta Center [address], previa specified Joe Fuentes, as w/o 120, Center [id number], hemorrhage, first Nick, Joe 120, [place] [email or web address] weeks Nick JESSICA, tel:+3162 gestation of [id number] [place], , [place]. [id number]. tel: tel:[phone] Yahaira Rom[place] Supervision of Blanca Referring In Womens Ultrasound other high risk 8-201 Valeria. Provider: Health RUEL, pregnancies, 7 700 Valeria PO Box first Medical Blanca L, 1522, trimesterPreg Center [address], care for patient Joe Fuentes, w recurrent preg 120, Center [id number], loss, first Nick, Joe 120, [place] [email or web address] weeks Nick JESSICA, tel:+3162 gestation of [id number] [place], , [place]. [id number]. tel: tel:[phone] Yahaira [place] Supervision of Blanca Referring In Womens other high risk 4-201 Valeria. Provider: Health RUEL, pregnancies, 7 700 Valeria PO Box first Medical Blanca L, 1522, trimesterPreg Center [address] [place] [address], care for patient Joe Fuentes, w recurrent preg 120, Center [id number], loss, first Nick, Joe 120, [place] [email or web address] weeks Nick JESSICA, tel:+3162 gestation of [id number] [place], , [place]. [id number]. tel: tel:[phone] Yahaira [place] Supervision of December-3 Blanca Referring In Womens other high risk 0-201 Valeria. Provider: Health RUEL, pregnancies, 7 700 Valeria PO Box first Medical Blanca L, 1522, trimesterPreg Center [address] [place] [address], care for patient Joe Fuentes, w recurrent preg 120, Center [id number], loss, first Nick, Joe 120, [place] trimesterEncntr Nick JESSICA, tel:+[phone] screen for [id number] [place], infections w sexl , [place]. [id number]. mode of tel: tel:+[phone] transmissEncounte [phone] r for screening for oth infec/parastc diseasesEncounter for screening of mother8 weeks gestation of Yahaira Rom[place] December-1 Blanca In Womens 8-201 Valeria. Health RUEL, 7 700 PO Box Medical 1522, [facility], Joe Fuentes, [address], [id number], [place], tel:[phone] , [place]. tel: [phone] Yahaira [place] Threatened December-0 Blanca Referring In Womens 8-201 Valeria. Provider: Luh LIPSCOMB, 7 700 Valeria PO Box Medical Blanca L, 1522, Center [facility] Dr Jacob, [facility], 120, [place] , Nick [place] [address], Nick JESSICA, tel:[phone] [place], [address] , . [id number]. tel: tel:+ [phone] Associates Nick MastodyniaIrregul Dec-1 Blanca Referring In Womens ar Menses 6-201 Valeria. Provider: Luh LIPSCOMB, 5 700 Valeria PO Box Medical Blanca L, 1522, Center [address] Jacob, [facility], 120, [place] [id number], [place] [address], Nick JESSICA, tel:+ [phone] [facility] [id number] , . [id number]. tel: tel:[phone] Associates Nick Recurrent Oct-1 Blanca In Womens loss 0-201 Valeria. Luh LIPSCOMB, 5 700 PO Box Medical 1522, Center Dr Jacob, [facility], 120, [id number], [place], [place], tel: [phone] , [place]. tel: [phone] Associates Nick Recurrent Oct-0 Blanca Referring In Womens 5-201 Valeria. Provider: Luh LIPSCOMB, lossEncntr screen 5 700 Valeria PO Box for infections w Medical Blanca L, 1522, sexl mode of Center 700 [place], transmissEnclakshmi Fuentes, [facility], r for 120, [place] [id number], test, result [place] [address], negative Nick JESSICA, tel:[phone] [place], , . [id number]. tel: tel:[phone] Family History Family Member Diagnosis Age At [...] Insurance type Covered alliance party ID Authorization(s) SAMINA MARTIN [id number] Social History Type Description Quantity Date Captured [...] cessation counseling completed Appointment Jossy Bey BOOKED Appointment Jossy Bey BOOKED Future Order: Radiology Order Nuchal Translucency ([id number]) Ordered Date Type Problem Goal Intervention Status Start [...]
--- OUTSIDE RECORDS SUMMARY | 2017-08-13 06:45 | External Medical Summary | Continuity of Care Document ---
:1990 Author Organization [facility] Address [address] [place], [place] [id number] Phone Allergies, Adverse Reactions, Alerts Substance Reaction [...] Effective Dates (start - stop) Clinical Status Preg care for patient w recurrent preg - loss, third trimester Encounter for suprvsn of normal - , third trimester 34 weeks gestation of - Mastodynia Irregular Menses [...] third trimester 36 weeks gestation of - Depression Active Procedures Procedure Date OB Visit No Charge Results Test Name Date and Time Measure Units Reference Range Abnormal Flag Comments Unknown Advance Directives Directive Yes / No Effective Date File Name Unknown Encounters Encounter Practice Location Reason(s) Diagnoses Date Provider Care Team Description For Visit Members Yahaira [place] Encounter for Blanca Referring In Womens suprvsn of normal 3-201 Valeria. Provider: Health PA, , third 7 700 Valeria PO Box [email or web address] weeks Marion Rios L, 1522, gestation of Center 700 [place], Joe Fuentes Medical [place], 120, [place] [id number], Nick [facility] 120, [place] Nick JESSICA, tel:[phone] [place], , [place]. [id number]. tel: tel: [phone] Yahaira Lam care for Nov-2 Blanca Referring In Womens patient w 7-201 Valeria. Provider: Health PA, recurrent preg 7 700 Valeria PO Box loss, third Medical Blanca L, 1522, trimesterEncounte Center 700 [place], r for suprvsn of Joe Fuentes, normal , 120, Center [id number], third [id number] [place], Joe 120, [place] weeks gestation Nick JESSICA, tel:[phone] of [phone] [place], , [place]. [id number]. tel: tel: [phone] Yahaira Rom[place] Supervision of Nov-0 Sobbing Referring In Womens other high risk 3-201 Kurt. Provider: Health PA, pregnancies, 7 700 Valeria PO Box third Medical Blanca L, 1522, trimesterPreg Center [address] [place] [address], care for patient Marion [place], w recurrent preg Suite Center [id number], loss, third 120, Joe 120, [place] weeks Nick [place], tel:+ [place], [address], [id number]. [place]. tel: tel: [phone] Yahaira [place] Oct-2 Blanca In Womens 0-201 Valeria. Health RUEL, 7 700 PO Box Medical 1522, Center Jacob, Joe Fuentes [place], 120, [id number], [place], tel:[phone] , [place]. tel: [phone] Yahaira [place] Supervision of Oct-1 Blanca Referring In Womens other high risk 9-201 Valeria. Provider: Health PA, pregnancies, 7 700 Valeria PO Box third Medical Blanca L, 1522, trimesterPreg Center [address] [place] [address], care for patient Joe Fuentes, w recurrent preg 120, Center [id number], loss, third [place], Joe 120, [place] trimesterEncounte Nick JESSICA, tel:[phone] r for suprvsn of [id number] [place], normal , , [place]. [id number]. third [email or web address] tel: tel:+316 weeks gestation [phone] of Associates Nick Encounter for Blanca Referring In Womens suprvsn of normal 3-201 Valeria. Provider: Luh LIPSCOMB, , second 7 700 Valeria PO Box [email or web address] weeks Medical Blanca L, 1522, gestation of Center [address] [place] [address], Joe Fuentes, 120, Center [id number], Nick [facility] 120, [place] Nick JESSICA, tel:[phone] [place], , [place]. [id number]. tel: tel: [phone] Yahaira [place] Supervision of Blanca Referring In Womens Ultrasound other high risk 3-201 Valeria. Provider: Luh LIPSCOMB, pregnancies, 7 700 Valeria PO Box second Medical Blanca L, 1522, trimesterPreg Center [address] [place] [address], care for patient Joe Fuentes, w recur preg 120, Center [id number], loss, second Nick, Joe 120, [place] trimesterPlacenta Nick JESSICA, tel: previa specified [phone] [place], as w/o hemor, , [place]. [id number]. second tel: tel: [id number] weeks [phone] gestation of Associates Nick Supervision of Blanca Referring In Womens other high risk 6-201 Valeria. Provider: Luh LIPSCOMB, pregnancies, 7 700 Valeria PO Box second Medical Blanca L, 1522, trimesterPlacenta Center [address] [place] [address], previa specified Joe Fuentes, as w/o hemor, 120, Center [id number], second Nick Joe 120, [place] [id number] weeks Nick JESSICA, tel: gestation of [id number] [place], , [place]. [id number]. tel: tel:+ [phone] Yahaira [place] Supervision of Blanca Referring In Womens other high risk 8-201 Valeria. Provider: Luh LIPSCOMB, pregnancies, 7 700 Valeria PO Box first Medical Blanca L, 1522, trimesterPlacenta Center [address] [place] [address], previa specified Joe Fuentes, as w/o 120, Center [id number], hemorrhage, first Nick Joe 120, [place] weeks Nick JESSICA, tel:+[phone] gestation of [id number] [place], , [place]. [id number]. tel: tel:[phone] Yahaira [place] Supervision of Jan-2 Blanca Referring In Womens Ultrasound other high risk 8-201 Valeria. Provider: Health PA, pregnancies, 7 700 Valeria PO Box first Medical Blanca L, 1522, trimesterPreg Center [address] [place] [address], care for patient Joe Fuentes, w recurrent preg 120, Center [id number], loss, first Nick Joe 120, [place] [email or web address] weeks Nick JESSICA, tel:+3162 gestation of [id number] [place], , [place]. [id number]. tel: tel:[phone] Yahaira [place] Supervision of Blanca Referring In Womens other high risk 4-201 Valeria. Provider: Health PA, pregnancies, 7 700 Valeria PO Box first Medical Blanca L, 1522, trimesterPreg Center [address] [place] [address], care for patient Joe Fuentes, w recurrent preg 120, Center [id number], loss, first Nick Joe 120, [place] [email or web address] weeks Nick JESSICA, tel:+[phone] gestation of [id number] [place], , [place]. [id number]. tel: tel:[phone] Yahaira [place] Supervision of December- Blanca Referring In Womens other high risk 0-201 Valeria. Provider: Health PA, pregnancies, 7 700 Valeria PO Box first Medical Blanca L, 1522, trimesterPreg Center [address] [place] [address], care for patient Joe Fuentes, w recurrent preg 120, Center [id number], loss, first Nick, Joe 120, [place] trimesterEncntr Nick JESSICA, tel:[phone] screen for [id number] [facility] infections w sexl , [place]. [id number]. mode of tel: tel:[phone] transmissEncounte [phone] r for screening for oth infec/parastc diseasesEncounter for screening of mother8 weeks gestation of Associates Nick May-1 Blanca In Womens 8-201 Valeria. Health RUEL, 7 700 PO Box Medical 15[address], Center Dr Jacob, [facility] [place], 120, [id number], [place], [place], tel: [phone] , [place]. tel: [phone] Yahaira [place] Threatened May-0 Blanca Referring In Womens 8-201 Valeria. Provider: Health RUEL, 7 700 Valeria PO Box Medical Blanca L, 1522, [place] [address] [address] Jacob, [facility], 120, [place] [id number], [place] [address], [facility], Nick, tel: [phone] [place], , . [id number]. tel: tel: [phone] Associates Nick MastodyniaIrregul Dec-1 Blanca Referring In Womens ar Menses 6-201 Valeria. Provider: Luh LIPSCOMB, 5 700 Valeria PO Box Medical Blanca L, 1522, Center [facility] [address] Jacob, [facility], 120, [place] [id number], [place] [address], [facility], Nick, tel: [phone] [place], , . [id number]. tel: tel: [phone] Yahaira [place] Recurrent Oct-1 Blanca In Womens loss 0-201 Valeria. Health RUEL, 5 700 PO Box Medical 1522, [place] Dr Jacob, [facility], 120, [id number], [place], [facility], tel: [phone] , [place]. tel: [phone] Yahaira [place] Recurrent Oct-0 Blanca Referring In Womens 5-201 Valeria. Provider: Luh LIPSCOMB, lossEncntr screen 5 700 Valeria PO Box for infections w Medical Blanca L, 1522, sexl mode of Center [facility] [address], [facility] [place], r for 120, [place] [id number], test, result Joe [place] 120, [place] negative Nick JESSICA, tel:[phone] [place] JESSICA90 , [place]. [id number]. tel: tel:[phone] Family History Family Member Diagnosis Age At [...] Unknown Payers Payer name Insurance type Covered republican [...] BOOKED Future Order: Radiology Order Nuchal Translucency ([id number]) Ordered Future Order: Radiology Order Complete OB Ultrasound > 14 Ordered Weeks (83919) Date Type Problem Goal Intervention Status Start [...]
--- OUTSIDE RECORDS SUMMARY | 2017-08-13 06:45 | External Medical Summary | Continuity of Care Document ---
:1990 Author Organization [facility] Address [address] [place], [place] [phone] Phone Allergies, Adverse Reactions, Alerts Substance Reaction [...] Effective Dates (start - stop) Clinical Status Supervision of other high risk - pregnancies, third trimester Preg care for patient w recurrent preg - loss, third trimester 31 weeks gestation of - Mastodynia Irregular Menses [...] third Medical Blanca L, 1522, trimesterPreg Center [address] [place] [address], care for patient Sherly, Medical ARACELY, w recurrent preg Suite Center [id number], loss, third 120, Joe 120, [place] [email or web address] weeks Nick [place], tel: gestation of ARACELY, ARACELY, [id number], [id number]. [place]. tel: tel: [phone] Yahaira [place] Oct-2 Blanca In Womens 0-201 Valeria. Health [place], 7 700 PO Box Medical 1522, [facility], Joe Fuentes [place], 120, [id number], [place], [place], tel:[phone] , [place]. tel: [phone] Yahaira [place] Supervision of Blanca Referring In Womens other high risk 9-201 Valeria. Provider: Luh LIPSCOMB, pregnancies, 7 700 Valeria PO Box third Medical Blanca L, 1522, trimesterPreg Center [address] [place] [address], care for patient Joe Fuentes, w recurrent preg 120, [place] [id number], loss, third [place], [facility] 120, [place] trimesterEncounte Nick JESSICA, tel: r for suprvsn of [id number] [place], normal , , [place]. [id number]. third [email or web address] tel: tel:+316 weeks gestation [phone] of Associates Nick Encounter for Mar- Blanca Referring In Womens suprvsn of normal 3-201 Valeria. Provider: Luh LIPSCOMB, , second 7 700 Valeria PO Box [email or web address] weeks Medical Blanca L, 1522, gestation of Center [address] [place] [address], Joe Fuentes, 120, [place] [id number], Nick [facility] 120, [place] Nick JESSICA, tel:[phone] [place], , [place]. [id number]. tel: tel: [phone] Yahaira [place] Supervision of Blanca Referring In Womens Ultrasound other high risk 3-201 Valeria. Provider: Luh LIPSCOMB, pregnancies, 7 700 Valeria PO Box second Medical Blanca L, 1522, trimesterPreg Center [address] [place] [address], care for patient Joe Fuentes, w recur preg 120, [place] [id number], loss, second Nick, [facility] 120, [place] trimesterPlacenta Nick JESSICA, tel: previa specified [phone] [place], as w/o hemor, , [place]. [id number]. second tel: tel:+[phone] [id number] weeks [phone] gestation of Associates Nick Supervision of Blanca Referring In Womens other high risk 6-201 Valeria. Provider: Health PA, pregnancies, 7 700 Valeria PO Box second Medical Blanca L, 1522, trimesterPlacenta Center [address] [place] [address], previa specified Joe Fuentes, as w/o hemor, 120, Center [id number], second Nick, Joe 120, [place] [id number] weeks Nick JESSICA, tel:+3162 gestation of [id number] [place], , [place]. [id number]. tel: tel:[phone] Yahaira [place] Supervision of Jerzy-2 Blanca Referring In Womens other high risk 8-201 Valeria. Provider: Health PA, pregnancies, 7 700 Valeria PO Box first Medical Blanca L, 1522, trimesterPlacenta Center [address] [place] [address], previa specified Joe Fuentes, as w/o 120, Center [id number], hemorrhage, first Nick, Joe 120, [place] [id number] weeks Nick JESSICA, tel:+3162 gestation of [id number] [place], , [place]. [id number]. tel: tel:[phone] Yahaira [place] Supervision of Jerzy-2 Blanca Referring In Womens Ultrasound other high risk 8-201 Valeria. Provider: Luh LIPSCOMB, pregnancies, 7 700 Valeria PO Box first Medical Blanca L, 1522, trimesterPreg Center [address] [place] [address], care for patient Joe Fuentes, w recurrent preg 120, Center [id number], loss, first Nick Joe 120, [place] weeks Nick JESSICA, tel:+3162 gestation of [id number] [place], , [place]. [id number]. tel: tel:[phone] Yahaira [place] Supervision of Jerzy-1 Blanca Referring In Womens other high risk 4-201 Valeria. Provider: Health RUEL, pregnancies, 7 700 Valeria PO Box first Medical Blanca L, 1522, trimesterPreg Center [address] [place] [address], care for patient Joe Fuentes, w recurrent preg 120, Center [id number], loss, first Nick, Joe 120, [place] [id number] weeks Nick JESSICA, tel:+[phone] gestation of [id number] [place], , [place]. [id number]. tel: tel: [phone] Yahaira [place] Supervision of December-3 Blanca Referring In Womens other high risk 0-201 Valeria. Provider: Luh LIPSCOMB, pregnancies, 7 700 Valeria PO Box first Medical Blanca L, 1522, trimesterPreg Center [address] [place] [address], care for patient , [facility] Marion JESSICA, w recurrent preg 120, [place] [id number], loss, first [place], [facility] 120, [place] trimesterEncntr Nick JESSICA, tel:2 screen for [phone] [place], infections w sexl , [place]. [id number]. mode of tel: tel: transmissEncounte [phone] r for screening for oth infec/parastc diseasesEncounter for screening of mother8 weeks gestation of Associates Nick December- Blanca In Womens 8-201 Valeria. Luh LIPSCOMB, 7 700 PO Box Medical 1522, [place] Dr Jacob, [facility], 120, [id number], [place], [place], tel: [phone] , [place]. tel: [phone] Yahaira [place] Threatened December-0 Blanca Referring In Womens 8-201 Valeria. Provider: Luh LIPSCOMB, 7 700 Valeria PO Box Medical Blanca L, 1522, Center [facility] Dr Jacob, [facility], 120, [place] [id number], Nick [facility] 120, Nick JESSICA, tel: [phone] [place], , [place]. [id number]. tel: tel: [phone] Yahaira [place] MastodyniaIrregul Dec- Blanca Referring In Womens ar Menses 6-201 Valeria. Provider: Luh LIPSCOMB, 5 700 Valeria PO Box Medical Blanca L, 1522, Center [facility] Dr Jacob, [facility] [place], 120, [place] [id number], Nick [facility] 120, Nick JESSICA, tel: [phone] [place], , [place]. [id number]. tel: tel: [phone] Associates Nick Recurrent Oct-1 Blanca In Womens loss 0-201 Valeria. Health PA, 5 700 PO Box Medical 1522, [place] Dr Jacob, [facility] [place], 120, [id number], [place], [place], tel: [phone] , [place]. tel: [phone] Associates Nick Recurrent Oct-0 Blanca Referring In Womens 5-201 Valeria. Provider: Health RUEL, lossEncntr screen 5 700 Valeria PO Box for infections w Medical Blanca L, 1522, sexl mode of Center 700 [place], transmissEncounte , [facility] [place], r for 120, [place] [id number], test, result Nick [place] [address], [place] negative Nick JESSICA, tel: [phone] [place], , . [id number]. tel: tel: [phone] Family History Family Member Diagnosis Age At [...] Unknown Payers Payer name Insurance type Covered constitution party ID Authorization(s) Unknown Social History Type Description Quantity Date Captured Alcohol Use Details No Caffeine Use Details Unknown Tobacco Use Status Smoking Status Former smoker Vital Signs Date / Height Weight BMI Pulse Blood Temperature Respiratory Body Head BMI Time: Rate Pressure Rate Surface Circumference percentile Area 183.40 27.8 lbs 8 mm[Hg] 1:36 kg/m PM eter (2) 0 1:30 kg/m PM eter (2) Chief Complaint And Reason For Visit Unknown Chief Complaint And Reason For Visit Reason For Referral Reason For Referral Unknown Plan Of Care Date Type Action Status Goal Tobacco cessation counseling completed Goal Tobacco cessation counseling completed Goal Tobacco cessation counseling completed Appointment Jossy Bey BOOKED Future Order: Radiology Order Nuchal Translucency ([id number]) Ordered Future Order: Radiology Order Complete OB Ultrasound > 14 Ordered Weeks (32655) Date Type Problem Goal Intervention Status Start [...]
--- OUTSIDE RECORDS SUMMARY | 2017-08-13 06:46 | External Medical Summary | Summary of Care ---
:1990 Author Name Sara Gibson M.D. Address Unavailable Unavailable , Care Team Providers Name Role Phone No Assigned PCP-Pt Confirmed Unavailable Unavailable Unavailable [...] O09.299) Status: Active Medications Name Dates Details No [...] Procedures Procedure Dates Details History of Tonsillectomy BETA HCG 3500 Ordered: 03-Dec-2016 HIV Ag/Ab Combo 3405 Ordered: 03-Dec-2016 OBSTETRIC PANEL 2130 Ordered: 03-Dec-2016 PROGESTERONE 3610 Ordered: 03-Dec-2016 Urinalysis, Reflex to Microscopic or Culture PRN [id number] Ordered: 03-Dec-2016 Immunization Name Dates Details Immunizations not documented [...] to report Results Date Description Value Details 03-Dec-2016 11:58 BETA HCG 3500 BETA HCG 931 mIU/mL (Above high Range: 0-5 threshold) Comments: Gestational age: 0.02-1 Weeks=5-50 mIU/mL1-2 Weeks= 50-500 mIU/mL2-3 Wefiy=884-4920 mIU/mL3-4 Gwutk=948-03,000 mIU/mL4-5 Weeks=1,000 -50,000 mIU/mL5-6 Weeks=10,000-100,000 mIU/mL6-8 Weeks=15,000-200,000 mIU/mL2-3 months=10,000-100,000 mIU/mL----- 11:58 PROGESTERONE 3610 PROGESTERONE 13.95 ng/mL Comments: Female:Follicular: 0.2-1.4 ng/mLLuteal : 3.3-25.6 ng/mLMid Luteal: 4.4-28.0 ng/mLPostmenopausal: 0.0-0.7 ng/mL----- Plan of Care Name Dates Details Planned Observations Planned Goals not documented Planned Encounters Appointment; Provider: Antoine Gibson M.D. On 15-Dec-2016 09:00 Instructions Name Dates Details Instructions not documented [...]
--- OUTSIDE RECORDS SUMMARY | 2017-08-13 06:46 | External Medical Summary | Continuity of Care Document ---
:1990 Author Organization [facility] Address [address] [place], [place] [address] Phone Allergies, Adverse Reactions, Alerts Substance Reaction [...] second trimester 16 weeks gestation of - Mastodynia Irregular Menses [...] first trimester 12 weeks gestation of - Threatened Depression Active Procedures Procedure Date OB Visit [...] Medical Blanca L, 1522, trimesterPlacenta Center [address], previa specified Joe Fuentes, as w/o hemor, 120, Center [id number], second Romero, Joe 120, [place] [id number] weeks Nick JESSICA, tel:+3162 gestation [place] [id number] [place], , [place]. [id number]. tel: tel:[phone] Yahaira Romero Supervision of Blanca Referring In Womens other high risk 8-201 Valeria. Provider: Luh LIPSCOMB, pregnancies, 7 700 Valeria PO Box first Medical Blanca L, 1522, trimesterPlacenta Center [address], previa specified Joe Fuentes, as w/o 120, Center [id number], hemorrhage, first Romero, Joe 120, [place] [id number] weeks Nick JESSICA, tel:+2 gestation of [id number] [place], , [place]. [id number]. tel: tel:[phone] Yahaira Romero Supervision of Blanca Referring In Womens Ultrasound other high risk 8-201 Valeria. Provider: Health RUEL, pregnancies, 7 700 Valeria PO Box first Medical Blanca L, 1522, trimesterPreg Center [address], care for patient Joe Fuentes, w recurrent preg 120, Center [id number], loss, first Nick, Joe 120, [place] [id number] weeks Nick JESSICA, tel:+3162 gestation of [id number] [place], , [place]. [id number]. tel: tel:[phone] Yahaira Romero Supervision of Jan- Blanca Referring In Womens other high risk 4-201 Valeria. Provider: Health PA, pregnancies, 7 700 Valeria PO Box first Medical Blanca L, 1522, trimesterPreg Center [address] [place] [address], care for patient , Joe JESSICA, w recurrent preg 120, Center [id number], loss, first Nick, [facility] 120, [place] [email or web address] weeks Nick JESSICA, tel:+3162 gestation of [id number] [place], , [place]. [id number]. tel: tel:[phone] Yahaira Romero Supervision of December-3 Blanca Referring In Womens other high risk 0-201 Valeria. Provider: Health RUEL, pregnancies, 7 700 Valeria PO Box first Medical Blanca L, 1522, trimesterPreg Center [address] [place] [address], care for patient Joe Fuentes, w recurrent preg 120, Center [id number], loss, first Nick, [facility] 120, [place] trimesterEncntr Nick JESSICA, tel:2 screen for [id number] [place], infections w sexl , [place]. [id number]. mode of tel: tel:316 transmissEncounte [phone] r for screening for oth infec/parastc diseasesEncounter for screening of mother8 weeks gestation of Associates Nick December-1 Blanca In Womens 8-201 Valeria. Health RUEL, [address] [facility] Medical [address] Jacob, [facility] [place], 120, [id number], [place], tel:[phone] , [place]. tel: [phone] Yahaira Romero Threatened December-0 Blanca Referring In Womens 8-201 Valeria. Provider: Luh LIPSCOMB, 7 700 Valeria PO Box Medical Blanca L, 1522, Center [facility] Jacob, , Joe Schultz [place], 120, Center [id number], Nick, [facility] 120, [place] Nick JESSICA, tel:[phone] [place], , [place]. [id number]. tel: tel: [phone] Associates Nick MastodyniaIrregul Dec-1 Blanca Referring In Womens ar Menses 6-201 Valeria. Provider: Health RUEL, 5 700 Valeria PO Box Medical Blanca L, 1522, Center [address] Jacob, [facility], 120, [place] [id number], [place] [address], Nick JESSICA, tel: [phone] [facility] , . [id number]. tel: tel: [phone] Associates Nick Recurrent Oct-1 Blanca In Womens loss 0-201 Valeria. Luh LIPSCOMB, 5 700 PO Box Medical [address] Jacob, [facility], 120, [id number], Romero, ARACELY, tel: [phone] , . tel: [phone] Associates Nick Recurrent Oct-0 Blanca Referring In Womens 5-201 Valeria. Provider: Luh LIPSCOMB, lossEncntr screen 5 700 Valeria PO Box for infections w Medical Blanca L, 1522, sexl mode of Center [facility] Jacob, transmissEnclakshmi Fuentes, [facility], r for 120, [place] [id number], test, result [place] [address], negative Nick JESSICA, tel: [phone] [facility] , . [id number]. tel: tel: [phone] Family History Family Member Diagnosis Age At [...] Unknown Payers Payer name Insurance type Covered democrat ID Authorization(s) [facility] ARACELY MARTIN [id number] Social History Type Description Quantity Date Captured [...] BOOKED Future Order: Radiology Order Nuchal Translucency ([id number]) Ordered Date Type Problem Goal Intervention Status [...]
--- OUTSIDE RECORDS SUMMARY | 2017-08-13 06:46 | External Medical Summary | Continuity of Care Document ---
:1988 Author Organization [facility] Address [address] [place], [place] [address] Phone Allergies, Adverse Reactions, Alerts Substance Reaction [...] suprvsn of normal - , second trimester Depression Active Procedures Procedure Date Ultrasound exam of preg uterus, complete Results Test Name Date and Time Measure Units Reference Range Abnormal Flag Comments Unknown Advance Directives Directive Yes / No Effective Date File Name Unknown Encounters Encounter Practice Location Reason(s) Diagnoses Date Provider Care Team Description For Visit Members Yahaira Romero 20 weeks Blanca Referring In Womens gestation of 3-201 Valeria. Provider: Luh LIPSCOMB, pregnancyEncounte 7 700 Valeria PO Box r for suprvsn of Medical Blanca L, 152, normal , Center [address] [place] [address], second trimester Joe Fuentes, 120, [place] [id number], Nick [facility] 120, [place] Nick JESSICA, tel:[phone] ARACELY, [id number] , [place]. [id number]. tel: tel: [phone] Yahaira Romero Supervision of Blanca Referring In Womens Ultrasound other high risk 3-201 Valeria. Provider: Luh LIPSCOMB, pregnancies, 7 700 Valeria PO Box second Medical Blanca L, 1522, trimesterPreg Center [address] [place], care for patient Joe Fuentes, w recur preg 120, Center [id number], loss, second Joe Romero 120, [place] trimesterPlacenta Nick JESSICA, tel: previa specified [id number] [place], as w/o hemor, , [place]. [id number]. second tel: tel: [id number] weeks [phone] gestation of Yaharia Romero Supervision of Blanca Referring In Womens other high risk 6-201 Valeria. Provider: Health PA, pregnancies, 7 700 Valeria PO Box second Medical Blanca L, 1522, [id number] weeks Center [address] [place] [address], gestation of Joe Fuentes, pregnancyPlacenta 120, Center [id number], previa specified Nick Joe 120, [place] as w/o hemor, Nick JESSICA, tel:+[phone] second trimester [phone] [place], , [place]. [id number]. tel: tel:[phone] Yahaira Romero Supervision of Jerzy-2 Blanca Referring In Womens other high risk 8-201 Valeria. Provider: Health PA, pregnancies, 7 700 Valeria PO Box first Medical Blanca L, 1522, trimesterPlacenta Center [address] [place] [address], previa specified Joe Fuentes, as w/o 120, Center [id number], hemorrhage, first Nick Joe 120, [place] weeks Nick JESSICA, tel:+3162 gestation [place] [id number] [place], , [place]. [id number]. tel: tel:[phone] Yahaira Romero Supervision of Jerzy-2 Blanca Referring In Womens Ultrasound other high risk 8-201 Valeria. Provider: Luh LIPSCOMB, pregnancies, 7 700 Valeria PO Box first Medical Blanca L, 1522, trimesterPreg Center [address] [place] [address], care for patient Joe Fuentes, w recurrent preg 120, Center [id number], loss, first Nick Joe 120, [place] [id number] weeks Nick JESSICA, tel:+3162 gestation [place] [id number] [place], , [place]. [id number]. tel: tel:[phone] Yahaira Romero Supervision of Jerzy-1 Blanca Referring In Womens other high risk 4-201 Valeria. Provider: Health RUEL, pregnancies, 7 700 Valeria PO Box first Medical Blanca L, 1522, trimesterPreg Center [address] [place] [address], care for patient Joe Fuentes, w recurrent preg 120, Center [id number], loss, first Nick Joe 120, [place] weeks Nick JESSICA, tel:+3162 gestation of [id number] [place], , [place]. [id number]. tel: tel: [phone] Yahaira Romero Preg care for December-3 Blanca Referring In Womens patient w 0-201 Valeria. Provider: Luh LIPSCOMB, recurrent preg 7 700 Valeria PO Box loss, first Medical Blanca L, 1522, trimesterSupervis Center [facility] Jacob, ion of other high , [facility] [place] JESSICA, risk pregnancies, 120, Center [id number], [facility] Nick [facility] 120, [place] trimesterEncntr Nick JESSICA, tel:2 screen for [id number] [place], infections w sexl , [place]. [id number]. mode of tel: tel: transmissEncounte [phone] r for screening for oth infec/parastc diseasesEncounter for screening of mother8 weeks gestation of Associates Nick December-1 Blanca In Womens 8-201 Valeria. Luh LIPSCOMB, 7 700 PO Box Medical [address] [place] [address] Jacob, [facility], 120, [id number], [place], [place], tel: [phone] , [place]. tel: [phone] Yahaira Romero Threatened May-0 Blanca Referring In Womens 8-201 Valeria. Provider: Luh LIPSCOMB, 7 700 Valeria PO Box Medical Blanca L, 1522, Center [facility] Dr Jacob, [facility] [place], 120, [place] [id number], Nick [facility] 120, Nick JESSICA, tel:[phone] [place], , [place]. [id number]. tel: tel: [phone] Yahaira Romero MastodyniaIrregul Dec-1 Blanca Referring In Womens ar Menses 6-201 Valeria. Provider: Luh LIPSCOMB, 5 700 Valeria PO Box Medical Blanca L, 1522, Center [facility] Dr Jacob, [facility] [place], 120, [place] [id number], Nick [facility] 120, Nick JESSICA, tel:[phone] [place], , [place]. [id number]. tel: tel: [phone] Associates Nick Recurrent Oct-1 Blanca In Womens loss 0-201 Valeria. Health RUEL, 5 700 PO Box Medical 1522, Center Jacob, , [facility], 120, [id number], [place], [place], tel: [phone] , . tel: [phone] Yahaira Romero Recurrent Oct-0 Blanca Referring In Womens 5-201 Valeria. Provider: Health RUEL, lossEncounter for 5 700 Valeria PO Box test, Medical Blanca L, 1522, result Center [facility] Jacob, negativeEncntr , [facility], screen for 120, [place] [id number], infections w sexl Nick, [facility] 120, [place] mode of transmiss Nick JESSICA, tel: [phone] [place], , . [id number]. tel: tel: [phone] Family History Family Member Diagnosis Age At [...] Jossy Bey BOOKED Future Order: Radiology Order Complete OB Ultrasound > 14 Ordered Weeks ([id number]) Future Order: Radiology Order Nuchal Translucency ([id number]) Ordered Date Type Problem Goal Intervention Status [...]
--- OUTSIDE RECORDS SUMMARY | 2017-08-13 06:46 | External Medical Summary | Continuity of Care Document ---
:1990 Author Organization [facility] Address [address] [place], [place] [address] Phone Allergies, Adverse Reactions, Alerts Substance Reaction [...] third trimester 29 weeks gestation of - Mastodynia Irregular Menses [...] third trimester 31 weeks gestation of - Threatened Encounter for suprvsn of normal - , second trimester 20 weeks gestation of - Depression Active Procedures Procedure Date OB Visit No Charge Hemoglobin count, colorimetric Hematocrit blood count Glucose test Venpnctr fngr/heel/ear stick routne Results Test Name Date and Time Measure Units Reference Range Abnormal Flag Comments Panel Description: Glucose [Mass/volume] in Serum or Plasma --1 hour post 50 g glucose PO GLUCOSE, 110 mg/dL <140 N Test performed at [facility] GESTATIONAL SCREEN 14:53:00 [employer] [id number] ([id number])-[address] [place] [address]Vcsbrdcu: JOSY LEONARD DO,MPH Panel Description: HEMOGLOBIN + HEMATOCRIT HEMOGLOBIN 14:53:00 10.9 g/dL 11.7-15.5 L HEMATOCRIT 14:53:00 30.7 % 35.0-45.0 L REPORT COMMENT:FASTING :NOTest performed at [facility] [id number] [place] [address]Rpxpgate: JOSY LEONARDDO,MPH Advance Directives Directive Yes / No Effective Date File Name Unknown Encounters Encounter Practice Location Reason(s) Diagnoses Date Provider Care Team Description For Visit Members Yahaira Romero Supervision of [place] Referring In Womens other high risk 3-201 Kurt. Provider: Luh LIPSCOMB, pregnancies, 7 700 Valeria PO Box third Medical Blanca L, 1522, trimesterPreg Center [address] [place] [address], care for patient Sherly, Medical [place], w recurrent preg Suite Center [id number], loss, third 120, Joe 120, [place] weeks Nick Romero, tel: [place], [address], [id number]. [place]. tel: tel: [phone] Yahaira Romero May- Blanca In Womens 0-201 Valeria. Luh LIPSCOMB, 7 700 PO [address] Medical [address]22, [place], Dr [facility] [place], 120, [id number], [place], [place], tel:[phone] , [place]. tel: [phone] Yahaira Romero Supervision of Blanca Referring In Womens other high risk 9-201 Valeria. Provider: Luh LIPSCOMB, pregnancies, 7 700 Valeria PO Box third Medical Blanca L, 1522, trimesterPreg Center [address] [place] [address], care for patient Joe Fuentes, w recurrent preg 120, [place] [id number], loss, third Romero, Joe 120, [place] trimesterEncounte Nick JESSICA, tel: r for suprvsn of [id number] [place], normal , , [place]. [id number]. third tel: tel:316 weeks gestation [phone] of Associates Nick Encounter for Blanca Referring In Womens suprvsn of normal 3-201 Valeria. Provider: Luh LIPSCOMB, , second 7 700 Valeria PO Box [id number] weeks Medical Blanca L, 1522, gestation of [address], Joe Fuentes, 120, [place] [id number], Joe 120, [place] Nick JESSICA, tel:+ [phone] [place], , [place]. [id number]. tel: tel:[phone] Yahaira Romero Supervision of Mar- Blanca Referring In Womens Ultrasound other high risk 3-201 Valeria. Provider: Health PA, pregnancies, 7 700 Valeria PO Box second Medical Blanca L, 1522, trimesterPreg Center [address] [place] [address], care for patient Joe Fuentes, w recur preg 120, Center [id number], loss, second Nick, Joe 120, [place] trimesterPlacenta Nick JESSICA, tel: previa specified [id number] [place], as w/o hemor, , [place]. [id number]. second tel: tel:+[phone] [id number] weeks [phone] gestation of Yahaira Romero Supervision of Blanca Referring In Womens other high risk 6-201 Valeria. Provider: Health PA, pregnancies, 7 700 Valeria PO Box second Medical Blanca L, 1522, trimesterPlacenta Center [address] [place] [address], previa specified Joe Fuentes, as w/o hemor, 120, Center [id number], second Nick Joe 120, [place] [id number] weeks Nick JESSICA, tel:+ gestation of [id number] [place], , [place]. [id number]. tel: tel:[phone] Yahaira Romero Supervision of Jan- Blanca Referring In Womens other high risk 8-201 Valeria. Provider: Health PA, pregnancies, 7 700 Valeria PO Box first Medical Blanca L, 1522, trimesterPlacenta Center [address] [place], previa specified Joe Fuentes, as w/o 120, Center [id number], hemorrhage, first Nick Joe 120, [place] [id number] weeks Nick JESSICA, tel:+316 gestation of [id number] [place], , [place]. [id number]. tel: tel:+[phone] Yahaira Romero Supervision of Jan- Blanca Referring In Womens Ultrasound other high risk 8-201 Valeria. Provider: Health PA, pregnancies, 7 700 Valeria PO Box first Medical Blanca L, 1522, trimesterPreg Center [address] [place] [address], care for patient Joe Fuentes, w recurrent preg 120, Center [id number], loss, first Nick, Joe 120, [place] [id number] weeks Nick JESSICA, tel:+2 gestation of [id number] [place], , [place]. [id number]. tel: tel:+[phone] Yahaira Romero Supervision of Blanca Referring In Womens other high risk 4-201 Valeria. Provider: Health PA, pregnancies, 7 700 Valeria PO Box first Medical Blanca L, 1522, trimesterPreg Center [address] [place] [address], care for patient Joe Fuentes, w recurrent preg 120, Center [id number], loss, first Nick, Joe 120, [place] [id number] weeks Nick JESSICA, tel:+2 gestation of [id number] [place], , [place]. [id number]. tel: tel:+[phone] Yahaira Romero Supervision of Blanca Referring In Womens other high risk 0-201 Valeria. Provider: Health PA, pregnancies, 7 700 Valeria PO Box first Medical Blanca L, 1522, trimesterPreg Center [address] [place] [address], care for patient Joe Fuentes, w recurrent preg 120, Center [id number], loss, first Nick, [facility] 120, [place] trimesterEncntr Nick JESSICA, tel:2 screen for [id number] [place], infections w sexl , [place]. [id number]. mode of tel: tel:+[phone] transmissEncounte [phone] r for screening for oth infec/parastc diseasesEncounter for screening of mother8 weeks gestation of Yahaira Romero Blanca In Womens 8-201 Valeria. Health PA, 7 700 PO Box Medical 1522, [facility], Joe Fuentes, 120, [id number], [place], [place], tel:[phone] , [place]. tel: [phone] Associates Nick Threatened May-0 Blanca Referring In Womens 8-201 Valeria. Provider: Health RUEL, 7 700 Valeria PO Box Medical Blanca L, 1522, Center [facility] Dr Jacob, [facility] [place], 120, [place] , Nick [facility] 120, Nick JESSICA, tel: [phone] [place], , [place]. [id number]. tel: tel: [phone] Associates Nick MastodyniaIrregul Dec-1 Blanca Referring In Womens ar Menses 6-201 Valeria. Provider: Luh LIPSCOMB, 5 700 Valeria PO Box Medical Blanca L, 1522, Center [facility] Dr Jacob, [facility], 120, [place] [id number], Nick [facility] 120, Nick JESSICA, tel:[phone] [facility] , . [id number]. tel: tel: [phone] Associates Nick Recurrent Oct-1 Blanca In Womens loss 0-201 Valeria. Health RUEL, 5 700 [address] Medical [address], [address] [address] Jacob, [facility], 120, [id number], Nick, ARACELY, tel: [phone] , [place]. tel: [phone] Associates Nick Recurrent Oct-0 Blanca Referring In Womens 5-201 Valeria. Provider: Luh LIPSCOMB, lossEncntr screen 5 700 Valeria PO Box for infections w Medical Blanca L, 1522, sexl mode of Center [facility] Jacob, transmissEncountmelissa Fuentes, [facility] [place], r for 120, [place] [id number], test, result [place] [address], negative Nick JESSICA, tel:[phone] [facility] , [place]. [id number]. tel: tel:[phone] Family History Family Member Diagnosis Age At [...] Rate Pressure Rate Surface Circumference percentile Area 175.60 26.7 119/80 2017 lbs 0 mm[Hg] 2:32 kg/m PM eter (2) Chief Complaint And Reason For Visit Unknown Chief Complaint And Reason For Visit Reason For Referral Reason For Referral Unknown Plan Of Care Date Type Action Status Goal Tobacco cessation counseling completed Goal Tobacco cessation counseling completed Goal Tobacco cessation counseling completed Appointment Jossy Bey BOOKED Future Order: Radiology Order Nuchal Translucency ([id number]) Ordered Future Order: Radiology Order Complete OB Ultrasound > 14 Ordered Weeks ([id number]) Date Type Problem Goal Intervention Status Start [...]
--- OUTSIDE RECORDS SUMMARY | 2017-08-13 06:46 | External Medical Summary | Summary of Care ---
:1990 Author Name Chad Her M.D. 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
--- OUTSIDE RECORDS SUMMARY | 2017-08-13 06:46 | External Medical Summary | Summary of Care ---
:1990 Author Name Denita Sheehan M.D. Address [address] [place], [place] [address] Care Team Providers Name Role Phone No [...] Pain, ankle, right (719.47, M25.571) Status: Active Medications Name Dates Details No [...] unknown Vital Signs Date Test Result Details 03-May-2015 16:19 BP Systolic 111 mm[Hg] Status: BP Diastolic 82 mm[Hg] Status: Temperature 98.6 f Status: Heart Rate 100 /min Status: O2 SAT 99 % Status: Results Date Description Value Details 03-May-2015 16:55 XRay ANKLE-Right Comments: Exam Date: 05/03/2015 16: 36Dictation Date: 05/03/2015 16:55 X ANKLE COMP (MIN 3V) RT (Better) Plan of Care Planned Observations Name Dates Details Planned Goals not documented Goal Instructions Instructions not documented Encounters Appointment; Mo Sheehan On 03-May-2015 Encounter Diagnosis: Problem not documented 16:10 Appointment; Tr Jules On 21-Jun-2014 Encounter Diagnosis: Problem not documented 14:35 Appointment; Martin Her On 21-Sep-2013 Encounter Diagnosis: Problem not documented 15:45 Appointment; Martin Her On 31-May-2013 Encounter Diagnosis: Problem not documented 10:00 Appointment; Martin Her On 30-May-2013 Encounter Diagnosis: Problem not documented 08:45
--- OUTSIDE RECORDS SUMMARY | 2017-08-13 06:46 | External Medical Summary | Continuity of Care Document ---
:1990 Author Organization [facility] Address [address] [place], [place] [id number] Phone Allergies, Adverse Reactions, Alerts Substance Reaction [...] w recurrent preg - loss, first trimester Encounter for screening of - mother 8 weeks gestation of - Encntr screen for infections w sexl - mode of transmiss Encounter for screening for oth - infec/parastc diseases Recurrent loss Encntr screen for infections w [...] trimester 16 weeks gestation of - Threatened Encounter for [...] Team Description For Visit Members Yahaira Romero Apr- Blanca Referring In Womens 0-201 Valeria. Provider: Luh LIPSCOMB, 7 700 Valeria [address] [place] R[place] L, 1522, Center [facility] Dr Jacob, [facility] [place], 120, [place] [id number], Nick [facility] 120, [place] Nick JESSICA, tel:[phone] [facility] , . [id number]. tel: tel:[phone] Yahaira Romero Encounter for Blanca Referring In Womens suprvsn of normal 3-201 Valeria. Provider: Luh LIPSCOMB, , second 7 700 Valeria [address] [id number] weeks [place] Rios L, 1522, gestation of Center [facility] Jacob, Joe Fuentes [place], 120, [place] [id number], Nick [facility] 120, [place] Nick JESSICA, tel:[phone] [place], , . [id number]. tel: tel:[phone] Yahaira Romero Supervision of Blanca Referring In Womens Ultrasound other high risk 3-201 Valeria. Provider: Luh LIPSCOMB, pregnancies, 7 700 Valeria [address] second Medical Blanca L, 1522, trimesterPreg Center [address] [place] [address], care for patient Joe Fuentes, w recur preg 120, [place] [id number], loss, second Nick, Joe 120, [place] trimesterPlacenta Nick JESSICA, tel:+ previa specified [phone] [place], as w/o hemor, , [place]. [id number]. second tel: tel:[phone] [id number] weeks [phone] gestation of Associates Nick Supervision of Jan- Blanca Referring In Womens other high risk 6-201 Valeria. Provider: Health PA, pregnancies, 7 700 Valeria [address] second Medical Blanca L, 1522, trimesterPlacenta Center [address] [place] [address], previa specified Joe Fuentes, as w/o hemor, 120, Center [id number], second Nick Joe 120, [place] weeks Nick JESSICA, tel:[phone] gestation of [phone] [place], , [place]. [id number]. tel: tel:[phone] Yahaira Romero Supervision of Jan- Blanca Referring In Womens other high risk 8-201 Valeria. Provider: Health PA, pregnancies, 7 700 Valeria PO Box first Medical Blanca L, 1522, trimesterPlacenta Center [address] [place] [address], previa specified Joe Fuentes, as w/o 120, Center [id number], hemorrhage, first Nick, Joe 120, [place] [email or web address] weeks Nick JESSICA, tel:+[phone] gestation of [phone] [place], , [place]. [id number]. tel: tel:[phone] Yahaira Romero Supervision of Jan-2 Blanca Referring In Womens Ultrasound other high risk 8-201 Valeria. Provider: Health PA, pregnancies, 7 700 Valeria PO Box first Medical Blanca L, 1522, trimesterPreg Center [address] [place] [address], care for patient Joe Fuentes, w recurrent preg 120, Center [id number], loss, first Nick, Joe 120, [place] [email or web address] weeks Nick JESSICA, tel:[phone] gestation of [phone] [place], , [place]. [id number]. tel: tel:[phone] Yahaira Romero Supervision of Blanca Referring In Womens other high risk 4-201 Valeria. Provider: Health PA, pregnancies, 7 700 Valeria PO Box first Medical Blanca L, 1522, trimesterPreg Center [address] [place] [address], care for patient , Joe Schultz [place], w recurrent preg 120, Center [id number], loss, first Nick, [facility] 120, [place] [id number] weeks Nick JESSICA, tel:[phone] gestation of [phone] [place], , [place]. [id number]. tel: tel:[phone] Yahaira Romero Supervision of Blanca Referring In Womens other high risk 0-201 Valeria. Provider: Health PA, pregnancies, 7 700 Valeria PO Box first Medical Blanca L, 1522, trimesterPreg Center [address] [place] [address], care for patient Joe Fuentes, w recurrent preg 120, Center , loss, [facility], [place] trimesterEncounte Nick JESSICA, tel:[phone] r for [phone] [place], screening of , [place]. [id number]. mother8 weeks tel: tel:[phone] gestation of [phone] pregnancyEncntr screen for infections w sexl mode of transmissEncounte r for screening for oth infec/parastc diseases Yahaira Romero December- Blanca In Womens 8-201 Valeria. Health RUEL, [address] [facility] Medical 1522, [place] [address] Jacob, [facility] [place], 120, [id number], [place], tel:[phone] , [place]. tel: [phone] Yahaira Romero Threatened December-0 Blanca Referring In Womens 8-201 Valeria. Provider: Health RUEL, 7 700 Valeria PO Box Medical Blanca L, 1522, Center [address], [facility] [place], 120, Center [id number], [facility] 120, Nick JESSICA, tel:[phone] [facility] , [place]. [id number]. tel: tel:[phone] Yahaira Romero MastodyniaIrregul Dec-1 Blanca Referring In Womens ar Menses 6-201 Valeria. Provider: Health PA, 5 700 Valeria PO Box Medical Blanca L, 1522, Center [address] Jacob, [facility], 120, [place] [id number], Nick [place] [address], Nick JESSICA, tel:+ [phone] [place], , . [id number]. tel: tel: [phone] Associates Nick Recurrent Oct-1 Blanca In Womens loss 0-201 Valeria. Health PA, 5 700 PO Box Medical 1522, [place] Dr Jacob, [facility], 120, [id number], Romero, [facility], tel:[phone] , [place]. tel: [phone] Yahaira Romero Recurrent Oct-0 Blanca Referring In Womens 5-201 Valeria. Provider: Luh LIPSCOMB, lossEncntr screen 5 700 Valeria PO Box for infections w Medical Blanca L, 1522, sexl mode of Center 700 Jacob, transmissEncounte , [facility] ARACELY, r for 120, [place] [id number], test, [place] [address], negative Nick JESSICA, tel:[phone] [place], , [place]. [id number]. tel: tel: [phone] Family History Family Member Diagnosis Age At [...] counseling completed Goal Tobacco cessation counseling completed Future Order: Radiology Order Nuchal Translucency (43004) Ordered Future Order: Radiology Order Complete OB Ultrasound > 14 Ordered Weeks (88757) Date Type Problem Goal Intervention Status Start [...]
--- OUTSIDE RECORDS SUMMARY | 2017-08-13 06:46 | External Medical Summary | Continuity of Care Document ---
:1990 Author Organization [facility] Allergies Active Description Code Type Severity Reaction Onset Reported/ Identified Relationship Clinical to Patient Status Yes amoxicillin 3675 1 N/A N/A Yes clindamycin 2794 1 N/A Rash Yes PENICILLIN 89705 1 N/A N/A Medications Medication Packaging Start Date Stop Date Route Dosage Sig Capsule 12/30/2016 02/09/2017 PROMETRIUM take 1 by Vaginal route every bedtime Tablet 12/30/2016 ASPIR 81 take 1 tablet by oral route every day Tablet 05/22/2017 FERROUS SULFATE take 1 tablet by oral route 2 times every day Problems Date Dx Coded Attending Type Code Diagnosis Diagnosed By 01/28/2017 Valeria Rios O09.891 Supervision of L other high risk pregnancies, first trimester 01/28/2017 Valeria Rios O26.21 Preg care for L patient w recurrent preg loss, first trimester 01/28/2017 Valeria Rios Z3A.12 12 weeks gestation L of 03/25/2017 Valeria Rios O09.892 Supervision of L other high risk pregnancies, second trimester 03/25/2017 Valeria Rios O26.22 Preg care for L patient w recur preg loss, second trimester 03/25/2017 Valeria Rios O44.02 Placenta previa L specified as w/o hemor, second trimester 03/25/2017 Valeria Rios Z3A.20 20 weeks gestation L of Procedures Code Description [place] [address] Ultrasound, 01/28/2017 Nuchal Translucency Measurement 53707 Ultrasnd exam 03/25/2017 of preg uterus, compl Results There is no data. Encounters ACCT No. Visit Discharge Status Pt. Type Provider Facility Loc./Unit Complaint Date/Time [id number] 07/30/2017 07/30/2017 CLS Outpatient Blanca, 14:25:00 23:59:59 Valeria Bonilla [id number] 07/23/2017 07/23/2017 CLS Outpatient Blanca, 15:30:00 23:59:59 Valeria L [id number] 07/15/2017 07/15/2017 CLS Outpatient Blanca, 13:30:00 23:59:59 Valeria L [id number] 06/29/2017 06/29/2017 CLS Outpatient Blanca, 14:45:00 23:59:59 Valeria L [id number] 06/05/2017 06/05/2017 CLS Outpatient [place], 13:20:00 23:59:59 Kurt L [id number] 05/22/2017 05/22/2017 CLS Outpatient Blanca, 10:57:00 23:59:59 Valeria L [id number] 05/21/2017 05/21/2017 CLS Outpatient Blanca, 14:30:00 23:59:59 Valeria L [id number] 04/22/2017 04/22/2017 CLS Outpatient Blanca, 15:28:00 23:59:59 Valeria L [id number] 03/25/2017 03/25/2017 CLS Outpatient Blanca, 10:50:00 23:59:59 Valeria L [id number] 03/25/2017 03/25/2017 CLS Outpatient Blanca, 10:15:00 23:59:59 Valeria L [id number] 02/25/2017 02/25/2017 CLS Outpatient Blanca, 11:30:00 23:59:59 Valeria L [id number] 02/09/2017 02/09/2017 CLS Outpatient Blanca, 15:37:00 23:59:59 Valeria L [id number] 01/28/2017 01/28/2017 CLS Outpatient Blanca, 10:15:00 23:59:59 Valeria L [id number] 01/28/2017 01/28/2017 CLS Outpatient Blanca, 09:45:00 23:59:59 Valeria L [id number] 01/28/2017 01/28/2017 CLS Outpatient Blanca, 09:06:00 23:59:59 Valeria L [id number] 01/22/2017 01/22/2017 CLS Outpatient Blanca, 10:00:00 23:59:59 Valeria L [id number] 01/14/2017 01/14/2017 CLS Outpatient Blanca, 16:20:00 23:59:59 Valeria L [id number] 12/30/2016 12/30/2016 CLS Outpatient Blanca, 09:00:00 23:59:59 Valeria L [id number] 12/18/2016 12/18/2016 CLS Outpatient Blanca, 15:51:00 23:59:59 Valeria L [id number] 12/16/2016 12/16/2016 CLS Outpatient Blanca, 16:44:00 23:59:59 Valeria L [id number] 12/09/2016 12/09/2016 CLS Outpatient Blanca, 08:05:00 23:59:59 Valeria L [id number] 12/08/2016 12/08/2016 CLS Outpatient Blanca, 14:00:00 23:59:59 Valeria L [id number] 12/08/2016 12/08/2016 CLS Outpatient Blanca, 08:16:00 23:59:59 Valeria L [id number] 07/18/2015 07/18/2015 CLS Outpatient Blanca, 13:05:00 23:59:59 Valeria L [id number] 07/16/2015 07/16/2015 CLS Outpatient Blanca, 13:52:00 23:59:59 Valeria L [id number] 07/12/2015 07/12/2015 CLS Outpatient Blanca, 14:06:00 23:59:59 Valeria L [id number] 05/30/2015 05/30/2015 CLS Outpatient Blanca, 08:24:00 23:59:59 Valeria L [id number] 05/07/2015 05/07/2015 CLS Outpatient Blanca, 14:45:00 23:59:59 Valeria L [id number] 08/07/2017 Document 14:40:00 Registration
[2017-08-13] MEDS ORDERED: OXYTOCIN DRIP 30 UNIT/500 ML ML IV PRN (06:49)
[2017-08-13] MEDS ORDERED: LIDOCAINE 1% (10mg/ml) 2mL INJ PF SDV ID PRN (06:49)
[2017-08-13] MEDS ORDERED: CALCIUM CARBONATE Chewable 500mg TABLET PO PRN (06:49)
[2017-08-13] MEDS ORDERED: METHYLERGONOVINE 0.2 MG/ML INJECTION IM PRN (06:49)
[2017-08-13] MEDS ORDERED: ACETAMINOPHEN 500 MG TABLET PO PRN (06:49)
[2017-08-13] MEDS ORDERED: MAG-AL + SIM ORAL LIQUID 30ml PO PRN (06:49)
[2017-08-13] MEDS ORDERED: CARBOPROST 250 MCG/ML INJECTION IM PRN (06:49)
[2017-08-13 07:10] VITALS: BMI 28.8
[2017-08-13] MEDS: LR 1,000 ML IV PRN ×2 (07:17→13:28)
[2017-08-13] MEDS: D5LR 1,000 ML IV PRN ×2 (07:18→18:37)
--- NOTE | 2017-08-13 08:09 | Anesthesia Preoperative Report ---
Anesthesia Epidural/Spinal Rec - Date and Time Date: 08/13/17 Preoperative Diagnosis: Procedure: Labor Epidural Plan: Epidural - Vital Signs Vital Signs: Temperature 98.6 F 08/13/17 07:21 Pulse Rate 104 H 08/13/17 07:21 Respiratory Rate 16 08/13/17 07:21 Blood Pressure 125/85 08/13/17 07:21 Pulse Oximetry 98 08/13/17 07:21 /Para: P:0 - Medictaions & Allergies Inpatient Medications: Current Medications Acetaminophen (Tylenol) 500 - 1,000 mg PO Q4H PRN PRN Reason: Pain Al Hydroxide/Mg Hydroxide (Maalox Plus) 30 ml PO Q3H PRN PRN Reason: Indigestion Calcium Carbonate (Tums) 500 - 1,000 mg PO Q2H PRN PRN Reason: Indigestion Carboprost Tromethamine (Hemabate) 250 mcg IM O PRN PRN Reason: .Downtime Dextrose/Lactated Ringer's (Dextrose 5%-Lactated Ringers) 1,000 mls @ 125 mls/ hr IV .Q8H PRN PRN Reason: Labor Last Admin: 08/13/17 07:18 Dose: 125 mls/hr Oxytocin (Pitocin Drip) 30 unit in 500 mls @ 2 mls/hr IV .Q24H PRN; Protocol PRN Reason: Induction/Augmentation Last Admin: 08/13/17 07:18 Dose: 2 mls/hr Lactated Ringer's (Lactated Ringers) 1,000 mls @ 999 mls/hr IV .Q1H1M PRN Last Admin: 08/13/17 07:17 Dose: 999 mls/hr Lidocaine HCl (Xylocaine-Mpf 1% Vial) 0.2 mg ID O PRN PRN Reason: IV Start Methylergonovine Maleate (Methergine) 0.2 mg IM O PRN Misoprostol (Cytotec) 800 mcg NE ONCE PRN - Medical History Neuro/Musculoskeletal: Reports: Depression Other History: Reports: Now - Surgical History Neurological Surgeries: 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) HEENT Surgeries: Reports: Tonsillectomy Reproductive Surgery/Treatment: DENIES: Section Anesthesia Reactions: None Hx Family Anesthesia Reaction: No History of Motion Sickness: No - Social History Smoking Status: Former smoker Second Hand Exposure: No Substance Use Type: does not use Alcohol Intake Frequency: does not drink - Pertinent Findings Lab Data: CBC and BMP 08/13/17 07:03 EKG Rhythm: Normal Sinus Rhythm - Physical Exam Respiratory Exam: lungs clear Cardiovascular Exam: regular rate and rhythm - Airway Assessment Mallampati Score: II TMD: 3 Fingerbreadths Neck Extension: good Overall Assessment: no airway concerns - ASA ASA Score: 2 - Discussion Discussion: Discussed risks/options/alternatives of anesthesia and questions answered. Patient consents. Nursing pain assessment noted. Anesthesia Discussion: spouse Attestation Statement: Prior to the delivery of any anesthetic medication, I examined the patient, developed the plan, obtained the patient's consent and discussed the risk and benefits of the procedure with the patient/guardian.
[2017-08-13] MEDS ORDERED: ROPIVACAINE 1% 10MG/ML INJ 200 MG, SUFentanil 50 MCG in NS 100 ML EPI PRN (13:31)
[2017-08-13] MEDS ORDERED: NALOXONE 0.4 MG/ML INJECTION IVP PRN (13:31)
[2017-08-13] MEDS ORDERED: ONDANSETRON 4 MG/2 ML INJECTION IVP PRN (13:31)
[2017-08-13] MEDS ORDERED: DiphenhydrAMINE 50 MG/ML INJECTION IVP PRN (13:31)
[2017-08-13] MEDS ORDERED: LIDOCAINE 2%/EPI 1:200,000 20ml SDV PF ONE (13:55)
[2017-08-14] MEDS: LR 1,000 ML IV PRN ×2 (01:59→04:38)
[2017-08-14] MEDS ORDERED: CEFAZOLIN 2 G in NS 100 ML IV SCH (03:00)
[2017-08-14] MEDS ORDERED: DiphenhydrAMINE 25 MG CAPSULE PO PRN (05:27)
[2017-08-14] MEDS ORDERED: CALCIUM CARBONATE Chewable 500mg TABLET PO PRN (05:27)
[2017-08-14] MEDS ORDERED: ACETAMINOPHEN 500 MG TABLET PO PRN (05:27)
[2017-08-14] MEDS ORDERED: HYDROCORTISONE 2.5% CREAM 30gm RECTALLY PRN (05:27)
[2017-08-14] MEDS ORDERED: MAG-AL + SIM ORAL LIQUID 30ml PO PRN (05:27)
[2017-08-14] MEDS ORDERED: OXYTOCIN DRIP 30 UNIT/500 ML ML IV SCH (05:30)
[2017-08-14] MEDS: IBUPROFEN 800 MG TABLET PO SCH ×3 (06:06→23:24)
--- NOTE | 2017-08-14 08:40 | Labor and Delivery Note ---
DATE OF DELIVERY She was admitted on 08/13/2017 and delivered today, 08/14/2017. DELIVERY NOTE Ms. Bey progressed slowly in first stage of labor, but when she was complete and +2 she began to push with excellent effort. She pushed for approximately an hour. During this time heart tones became increasingly tachycardic with deep variable decelerations intermittently. I recommended that we apply the vacuum device. We applied this for the course of one contraction without any difficulty. She continued to push well. With one pull , the head was then delivered in the OA presentation. There was a tight nuchal cord x 1. This was doubly clamped and cut. After it was reduced the baby was bulb suctioned. With a further push, baby was delivered in total. Baby was then given to the nurses and Respiratory Therapy for care. This is a liveborn male with Apgars of 4/7/8. I believe the initial low was due to the tight nuchal cord. While awaiting the placenta to deliver, I repaired the second-degree midline laceration that had also extended to the left lateral introitus. This was repaired with a 2-0 Vicryl and a 3-0 chromic without difficulty. There were also bilateral periurethral lacerations that were superficial and hemostatic and were therefore not repaired. At this point the placenta then delivered spontaneously, intact, with a normal configuration and a normal-appearing three-vessel cord. Total blood loss was approximately 400 ml. At the time of this dictation mother and baby are doing well. SANDRA
--- NOTE | 2017-08-14 09:03 | Anesthesia Postoperative Note ---
- Date and Time Date: 08/14/17 Time: 09:02 - Status Patient Participated in Evaluation: Patient Participated in Person Vital Signs: Temperature 98.2 F 08/13/17 11:21 Pulse Rate 107 H 08/13/17 11:21 Respiratory Rate 18 08/13/17 11:21 Blood Pressure 126/74 08/13/17 11:21 Pulse Oximetry 98 08/13/17 11:21 Respiratory Function: Airway Patent Mental Status: Alert and Oriented Pain Intensity: 0 Hydration: Taking PO Fluids, IV Infusing Complications During Recover: None Apparent - Follow-Up Instructions Instructions: Per Surgeon
[2017-08-14] MEDS: HYDROCODONE/APAP 5mg/325mg TABLET PO PRN ×3 (10:18→21:54)
--- NOTE | 2017-08-14 13:06 | OB/GYN Progress Note ---
OB-PP Progress Note - General PPD0 - Subjective Date: 08/14/17 Lochia: Minimal Pain: controlled Voiding: patiño still in place Nausea or Vomiting Present: No - Objective Vital Signs: Last Vital Signs Temp 98.2 F 08/13/17 11:21 Pulse 107 H 08/13/17 11:21 Resp 18 08/14/17 09:25 BP 108/67 08/14/17 09:25 Pulse Ox 98 08/13/17 11:21 Urine Output: good General: alert and oriented - Assessment Assessment: SPFELIPE - Plan Plan: routine care
[2017-08-14] MEDS: DOCUSATE CALCIUM 240 MG CAPSULE PO SCH (16:30)
[2017-08-14] MEDS: PRENATAL VITAMIN TABLET PO SCH (16:30)
[2017-08-15] MEDS: HYDROCODONE/APAP 5mg/325mg TABLET PO PRN ×4 (01:21→22:29)
[2017-08-15] MEDS: IBUPROFEN 800 MG TABLET PO SCH ×4 (01:21→18:14)
[2017-08-15] MEDS: DOCUSATE CALCIUM 240 MG CAPSULE PO SCH (08:23)
[2017-08-15] MEDS: PRENATAL VITAMIN TABLET PO SCH (08:31)
--- NOTE | 2017-08-15 08:40 | OB/GYN Progress Note ---
OB-PP Progress Note - General PPD1 Maternal Group B Strep: Negative Maternal blood type: A+ Maternal Rubella Status: Not Immune - Subjective Date: 08/15/17 Lochia: Minimal Pain: controlled Voiding: voiding - Objective Vital Signs: Last Vital Signs Temp 98.0 F 08/15/17 03:44 Pulse 82 08/15/17 03:44 Resp 18 08/15/17 03:44 BP 115/77 08/15/17 03:44 Pulse Ox 97 08/15/17 03:44 General: alert and oriented Abdomen: fundus firm, non-tender Extremities: non-tender - Assessment Assessment: VAVD - Plan Plan: routine care MMR. Baby getting Abx, so home tomorrow.
[2017-08-15] MEDS ORDERED: MEASLES-MUMPS-RUBELLA VACCINE 0.5ml INJECTION SUB-Q ONE (08:41)
[2017-08-15 12:32] VITALS: RESP 16
[2017-08-16 01:26] VITALS: O2SAT 98
[2017-08-16] MEDS: IBUPROFEN 800 MG TABLET PO SCH ×2 (01:27→06:15)
[2017-08-16] MEDS: DOCUSATE CALCIUM 240 MG CAPSULE PO SCH (09:32)
[2017-08-16] MEDS: PRENATAL VITAMIN TABLET PO SCH (09:32)
--- NOTE | 2017-08-16 11:15 | OB/GYN Progress Note ---
OB-PP Progress Note - General PPD2 Maternal Group B Strep: Negative Maternal blood type: A+ Maternal Rubella Status: Not Immune - Subjective Date: 08/16/17 Lochia: Minimal Pain: controlled Voiding: voiding Nausea or Vomiting Present: No - Objective Vital Signs: Last Vital Signs Temp 98.3 F 08/16/17 06:15 Pulse 86 08/16/17 06:15 Resp 16 08/16/17 06:15 BP 138/97 H 08/16/17 06:15 Pulse Ox 98 08/16/17 06:15 General: alert and oriented Cardiovascular: regular rate,rhythm Respiratory: non-labored Abdomen: fundus firm Extremities: non-tender Edema: none - Assessment Assessment: SP, VAVD - Plan Plan: routine care, discharge home
[2017-08-16 12:31] VITALS: BP 125/89; PULSE 110; TEMP 98.1
== END 2017-08-16 12:35 | disposition home or self-care (01) | DRG 775 ==
LOC: MC 08-13 06:38
PROVIDERS: ADMIT Obstetrics & Gynecology; ATTEND Obstetrics & Gynecology